=== PATIENT | female | born 1990 | race Caucasian/White ===

== ENCOUNTER 2020-05-07 09:36 | Emergency (ER) | payer OTHER, SELFPAY ==
[2020-05-07 09:53] VITALS: BP 99/68; PULSE 83; RESP 18; TEMP 36.9; O2SAT 100
--- NOTE | 2020-05-07 09:53 | ED.GENADULT ---
HPI - General Adult General Chief complaint: Ear Stated complaint: Ear Time Seen by Provider: 05/07/20 10:11 Source: patient Mode of arrival: ambulatory Limitations: no limitations History of Present Illness HPI narrative: 29-year-old female patient resents to the [facility] with complaints of clogged ear to right. Patient states she had an itchy ear on the right side yesterday and used a Q-tip and states that she thinks she might have pushed the wax down into the ear and now is feeling clogged. Denies any pain. Denies any fevers, runny nose or coughing. Related Data Home Medications Medication Instructions Recorded Confirmed No Home Medications 05/07/20 05/07/20 Allergies Allergy/AdvReac Type Severity Reaction Status Date / Time cephalexin Allergy Unknown hallucinations, Verified 05/07/20 10:00 tachycardia tramadol Allergy Unknown HALLUCINATIONS, Verified 05/07/20 10:00 CHEST TIGHTNESS Review of Systems Review of Systems: Narrative: CONSTITUTIONAL: Denies fever, chills, or sweats. EYES: Denies visual changes, redness, or discharge. ENT: Denies rhinorrhea, congestion, sore throat, or otalgia. Positive clogged right ear. CARDIOVASCULAR: Denies chest pain, palpitations, or edema. RESPIRATORY: Denies cough or dyspnea. GASTROINTESTINAL: Denies abdominal pain, nausea, vomiting, or diarrhea. GENITOURINARY: Denies dysuria or hematuria. SKIN: Denies rash or itching. MUSCULOSKELETAL: Denies back pain, joint pain, or myalgia. NEUROLOGIC: Denies headache, numbness, or weakness. PSYCHIATRIC: Denies anxiety or depression. [facility] Past Medical History Medical History Anemia Marijuana use Surgical History Surgical History (Updated 05/07/20 @ 09:55 by TEENA Lake) H/O tubal ligation Comments At the time of my signature I agree with nursing past medical history, surgical, social, and family history. There is no relevant family history pertinent to the presenting complaint. Exam Narrative: Exam Narrative: GENERAL: Well-appearing, well-nourished, and in no acute distress. HEAD: Normocephalic, atraumatic. EYES: PERRLA and EOMI. ENT: Nares clear, no rhinorrhea or epistaxis. Mucous membranes moist. Right TM unable to be visualized due to impacted cerumen noted to the canal. NECK: Supple. No lymphadenopathy CHEST: Clear to auscultation. No respiratory distress. HEART: Regular rate and rhythm. No murmur heard. Normal peripheral pulses. ABDOMEN: Soft, nontender, nondistended, normal active bowel sounds. EXTREMITIES: Normal range of motion. No edema. SKIN: Warm, dry, no rash. NEURO: No focal deficits. Alert and oriented x3. Course Vital Signs Vital signs: Vital Signs Temperature 36.9 C 05/07/20 09:53 Pulse Rate 83 05/07/20 09:53 Respiratory Rate 18 05/07/20 09:53 Blood Pressure 99/68 L 05/07/20 09:53 Pulse Oximetry 100 05/07/20 09:53 Temperature 36.9 C 05/07/20 09:53 Pulse Rate 83 05/07/20 09:53 Respiratory Rate 18 05/07/20 09:53 Blood Pressure 99/68 L 05/07/20 09:53 Pulse Oximetry 100 05/07/20 09:53 Vital signs reviewed. Procedures Ear Wax Removal Right Ear: Ear Wax Removal Date: 05/07/20 Ear Wax Removal Time: 10:15 Cerumenolytic Used: 5-10% Sodium Bicarb solution Results: Re-examined: cerumen removed completely TM Examination: TM(s) intact, normal appearance Ear Canal Exam: atraumatic Patient Tolerated Procedure: well Complications: no problems Technique: ear canal irrigated and ear canal curetted Additional Comments: The patient had cerumen removed from the R ear canal with warm water and peroxide irrigation and a loop in order to visualize the TM. The TM has no perforations or erythema post procedure. There were no complications. Medical Decision Making Differential Diagnosis Differential Diagnosis: Differential diagnosis: Otitis media, otitis externa, perforated TM, infection of the
== END 2020-05-07 10:24 | disposition home or self-care (01) ==
PROVIDERS: Emergency Provider Nurse Practitioner Family
DX: H61.21 Impacted cerumen, right ear (principal)
CPT/HCPCS: 69210; 99212; G0463

== ENCOUNTER 2021-05-06 14:30 | Emergency (ER) | payer OTHER, SELFPAY ==
[2021-05-06 14:40] VITALS: BP 117/83; PULSE 75; RESP 16; TEMP 36.9; O2SAT 100
--- NOTE | 2021-05-06 16:43 | ED.EAR ---
HPI - Ear Problem General Stated complaint: Ear pain Time Seen by Provider: 05/06/21 14:30 Source: patient and RN notes reviewed Mode of arrival: ambulatory Limitations: no limitations History of Present Illness HPI Narrative: 30-year-old female presents with concern for bilateral ear itching, purulent drainage, foul-smelling drainage, feeling of fluid in her ears. She denies rhinorrhea, nasal congestion, decreased hearing, sore throat, headache, fever. Denies intervention. Complaint: ear pain Related Data Allergies Allergy/AdvReac Type Severity Reaction Status Date / Time No Known Allergies Allergy Verified 05/06/21 16:46 Review of Systems Review of Systems: CONSTITUTIONAL: Denies malaise, chills, sweats, or fever. EYES: Denies visual changes, redness, or discharge. ENT: Denies rhinorrhea, congestion, sinus pain, otalgia or sore throat. Reports bilateral itchy ears, purulent drainage, feeling of fluid in her ears CARDIOVASCULAR: Denies chest pain, palpitations, or edema. SKIN: Denies rash or itching. MUSCULOSKELETAL: Denies myalgia. NEUROLOGIC: Denies headache. All systems reviewed & are unremarkable except as noted in HPI and below PMFSH Comments At time of signature, agree with nursing past medical, surgical, social and family history. There is no relevant family history pertinent to the presenting complaint Exam Narrative: GENERAL: Well-appearing, well-nourished, and in no acute distress. HEAD: Normocephalic EYES: PERRLA, conjunctivae clear ENT: Nares clear. Mucous membranes moist. TM pearly ward with dull light reflex bilaterally; no tragal tenderness bilateral purulent discharge in auditory canals without erythema or edema. Oropharynx not erythematous without lesions. Tonsils not enlarged and without exudate, no drooling, no hoarseness, no trismus, uvula midline. NECK: Supple. No lymphadenopathy CHEST: No respiratory distress, speaks in full sentences. HEART: Regular rate and rhythm. SKIN: Warm, dry, no rash. NEURO: Alert and oriented x3. PSYCH: Normal mood and affect Course Course Emergency Course: Patient is aware of diagnosis, understands and agrees to treatment plan. Anticipatory guidance given. Patient agrees to follow-up as directed and is aware of reasons to seek care at the emergency department. Portions of this record may have been created with voice recognition software Vital Signs Vital signs: Vital Signs Temperature 98.4 F 05/06/21 14:40 Pulse Rate 75 05/06/21 14:40 Respiratory Rate 16 05/06/21 14:40 Blood Pressure 117/83 05/06/21 14:40 Pulse Oximetry 100 05/06/21 14:40 Temperature 98.4 F 05/06/21 14:40 Pulse Rate 75 05/06/21 14:40 Respiratory Rate 16 05/06/21 14:40 Blood Pressure 117/83 05/06/21 14:40 Pulse Oximetry 100 05/06/21 14:40 Reviewed. Medical Decision Making MDM Narrative Medical decision making narrative: Differential diagnosis considered: Rider virus, strep pharyngitis, allergic rhinitis, upper respiratory tract infection, sinusitis, rhinosinusitis, nasopharyngitis. viral pharyngitis, otitis media, otitis externa, cerumen impaction, eustachian tube dysfunction, foreign body. Exam findings show no acute concerns or changes; patient is non-toxic appearing and is in no distress. Patient is appropriate for outpatient treatment and follow-up. Vital Signs Vital Signs: Vital Signs Temperature 98.4 F 05/06/21 14:40 Pulse Rate 75 05/06/21 14:40 Respiratory Rate 16 05/06/21 14:40 Blood Pressure 117/83 05/06/21 14:40 Pulse Oximetry 100 05/06/21 14:40 Temperature 98.4 F 05/06/21 14:40 Pulse Rate 75 05/06/21 14:40 Respiratory Rate 16 05/06/21 14:40 Blood Pressure 117/83 05/06/21 14:40 Pulse Oximetry 100 05/06/21 14:40 Critical Care Time Critical Care Time Critical Care Time: No Discharge Plan Discharge Clinical Impression: Otitis externa Qualifiers: Otitis externa type: unspecified type Chronicity
== END 2021-05-06 16:20 | disposition home or self-care (01) ==
PROVIDERS: Emergency Provider Nurse Practitioner
DX: H60.503 Unspecified acute noninfective otitis externa, bilateral (principal)
CPT/HCPCS: 99213; G0463

== ENCOUNTER 2021-05-31 11:23 | Emergency (ER) | payer OTHER, SELFPAY ==
--- NOTE | ~2021-05-31 | XR_ITS ---
XR chest 2V DATE: 05/31/2021 11:56 INDICATION: Chest pain, right side, radiating to shoulder blade TECHNIQUE: PA and lateral views COMPARISON: None FINDINGS: Normal heart size. No hilar or mediastinal enlargement. No pulmonary infiltrate or consolid ation, pleural effusion or pulmonary vascular congestion or pneumothorax. Included skeletal structure s appear normal. IMPRESSION: Negative Reviewed, dictated and finalized at location A. IMPRESSION: Negative
[2021-05-31 11:30] VITALS: BP 108/80; PULSE 99; RESP 16; TEMP 36.6; O2SAT 98
--- NOTE | 2021-05-31 11:30 | ECG_ITS ---
Measurements Intervals [place] Rate: 95 P: 51 LA: 134 QRS: 39 QRSD: 85 T: 17 QT: 351 QTc: 442 Interpretive Statements SINUS RHYTHM NORMAL ECG Electronically Signed On 05-31-2021 18:10:44 CDT by Nash Delgado D.O.
[2021-05-31] MEDS: ASPIRIN 81 MG CHEWABLE TABLET 324 MG PO (11:39)
[2021-05-31 11:44] LABS: Basophils Percent Auto 0.5 % (0.2-1.2); Eosinophils Absolute Auto 0.1 K/mm3 (0-0.3); Eosinophils Percent Auto 2.1 % (0-4.4); Hematocrit 41.7 % (37.0-47.0); Immature Granulocyte Absolute 0.02 K/mm3 (0.00-0.031); Immature Granulocyte Percent A 0.3 % (0-0.5); Lymphocytes Absolute Auto 1.61 K/mm3 (0.9-3.2); Lymphocytes Percent Auto 24.6 % (18.3-44.2); Mean Corpuscular HGB Conc 33.6 g/dl (32-36); Mean Corpuscular Hemoglobin 30.3 pg (26-34); Mean Corpuscular Volume 90.3 fl (80-100); Mean Platelet Volume 9.6 fl (7.4-10.4); Monocytes Absolute Auto 0.6 K/mm3 (0.1-0.6); Monocytes Percent Auto 8.4 % (2.6-8.5); Neutrophils Absolute Auto 4.2 K/mm3 (1.3-6.7); Neutrophils Percent Auto 64.1 % (45.5-73.1); Platelet Count Result 272 k/mm3 (150-375); Red Blood Count 4.62 M/mm3 (4.2-5.4); Red Cell Distribution Width 13.1 % (11.5-14.5); White Blood Count 6.5 K/mm3 (4.5-10.0)
[2021-05-31 11:53] LABS: Anion Gap 8 mmol/L (8-16); Blood Urea Nitrogen 13 mg/dL (7-17); Calcium 8.9 mg/dL (8.4-10.2); Carbon Dioxide 24 mmol/L (22-30); Chloride 107 mmol/L (98-107); Estimated Glomerular Filt Rate > 60; Glucose 99 mg/dL (65-110); Potassium 3.7 mmol/L (3.4-5.0); Sodium 139 mmol/L (137-145)
[2021-05-31 12:05] LABS: Troponin I < 0.012 ng/mL (0.000-0.034)
[2021-05-31 12:47] LABS: Alanine Aminotransferase 15 U/L (4-35); Albumin Level 4.5 g/dL (3.5-5.1); Alkaline Phosphatase 54 U/L (38-126); Aspartate Amino Transferase 27 U/L (14-36); Bilirubin,Total 0.5 mg/dL (0.2-1.3); Lipase 66 U/L (23-300)
[2021-05-31] MEDS: KETOROLAC 30 MG/ML VIAL (*BKC) IV PUSH (12:48)
--- NOTE | 2021-05-31 13:49 | ED.CHESTPAIN ---
HPI - Chest Pain General Chief Complaint: Chest Pain Stated Complaint: right sided chest pain Time Seen by Provider: 05/31/21 12:01 Source: patient Mode of arrival: ambulatory Limitations: no limitations History of Present Illness HPI narrative: 30-year-old female In good health Complains of a 2-day history of pain in the right upper chest Sometimes radiates to her upper back on the same side No other associated symptoms, specifically she does not have a cough fever or shortness of breath, she does not have nausea or vomiting, there is no history of injury Pain is increased by some movements and positions, there is some mild tenderness with palpation, and incidentally or not it for started after smoking marijuana which she does most days Related Data Allergies Allergy/AdvReac Type Severity Reaction Status Date / Time cephalexin Allergy Unknown hallucinations, Verified 05/07/20 10:00 tachycardia tramadol Allergy Unknown HALLUCINATIONS, Verified 05/07/20 10:00 CHEST TIGHTNESS Review of Systems Review of Systems: All systems reviewed & are unremarkable except as noted in HPI and below Constitutional: Constitutional: Reports no additional constitutional complaints, Denies chills, Denies fever(s) and Denies headache(s) Eyes: Eyes: Reports no additional eye complaints and Denies change in vision ENT: Denies headache(s) and Denies sore throat Cardiovascular: Cardiovascular: Reports chest pain, Denies radiating jaw, neck or arm pain and Denies dyspnea Respiratory: Respiratory: Denies cough and Denies dyspnea Gastrointestinal: Gastrointestinal: Denies abdominal pain, Denies diarrhea, Denies nausea and Denies vomiting Genitourinary: Genitourinary: Denies urinary frequency and Denies dysuria Musculoskeletal: Musculoskeletal: Denies deformity, Denies arthralgias, Denies joint swelling and Denies numbness Integumentary/Breasts: Skin/Breast: Denies rash and Denies wounds Neurologic: Denies headache(s), Denies focal weakness and Denies numbness Psychiatric: Psychiatric: Reports no additional psychiatric complaints Endocrine: Endocrine: Reports no additional endocrine complaints Hematologic/Lymphatic: Hematologic/Lymphatic: Reports no additional hematologic/lymphatic complaints Allergic/Immunologic: Allergic/Immunologic: Reports no additional allergic/immunologic complaints PMFSH Past Medical History Medical History Anemia Marijuana use Surgical History Surgical History H/O tubal ligation Exam Const: General: cooperative, healthy appearing, no acute distress and alert Orientation/consciousness: patient oriented x3 (alert) HENMT: Head: normal to inspection, normocephalic and atraumatic Ears: external ears normal General nose exam: no epistaxis Eyes: Conjunctivae: conjunctivae normal EOM: EOMs intact bilaterally Neck: Neck: normal visual inspection, supple and no JVD Chest: Chest palpation & inspection: tenderness Other: Mild tenderness of the medial right upper chest Resp: Effort & Inspection: normal respiratory effort and not labored Auscultation: clear to auscultation bilaterally, no rales, no rhonchi, no wheezes and other (BS =) Cardio: Rate: regular rate Rhythm: regular rhythm Heart sounds: no murmurs GI: GI Palp: Yes Soft to palpation, No Tenderness to palpation present (GI), No Guarding due to palpation present (GI) and No Rebound tenderness present Back/Spine/Pelvis: Back: no CVA tenderness Skin: General skin exam: normal color and no rashes or lesions noted Neuro: General: patient oriented x3 (alert) and moves all extremities Speech: normal speech Extrem: General: normal to inspection and no pedal edema Psych: Affect: normal affect Course Course Emergency Course: Work-up unremarkable Normal LFTs and right upper quadrant is nontender She perks out Vital Signs Vital signs: Vital Signs Temperature
[2021-05-31 14:05] VITALS: PULSE 80; RESP 16; O2SAT 98
== END 2021-05-31 14:06 | disposition home or self-care (01) ==
PROVIDERS: Emergency Provider Emergency Medicine
DX: R07.89 Other chest pain (principal); Z86.2 Personal history of diseases of the blood and blood-forming organs and certain disorders involving the immune mechanism
CPT/HCPCS: 36415; 71046; 80048; 80076; 83690; 84484; 85025; 93005; 96374; 99284; A9270; J1885

== ENCOUNTER 2021-06-25 10:39 | Emergency (ER) | payer OTHER, SELFPAY ==
--- NOTE | ~2021-06-25 | XR_ITS ---
EXAMINATION: XR finger 2nd LT min 2V DATE: 06/25/2021 10:57 INDICATION: Laceration to the tip of the left second digit while cutting bread. TECHNIQUE: Dorsal palmar, lateral and 2 oblique views of the left second digit were obtained COMPARISON: None FINDINGS: Bone alignment is normal. No fracture. Joint spaces are normal. Linear lucency likely representing th e laceration projecting over the soft tissues at the palmar tip of the second digit. No radiopaque fo reign bodies. IMPRESSION: 1. No osseous abnormality or radiopaque foreign body. Reviewed, dictated and finalized at location A.
[2021-06-25 10:40] VITALS: BP 131/82; PULSE 74; RESP 14; TEMP 36.1; O2SAT 94
--- NOTE | 2021-06-25 11:01 | PC.NURSE ---
wound cleaned with wound cleanser and loose gauze dressing applied.
--- NOTE | 2021-06-25 11:25 | ED_ITS ---
HPI - Wound/Laceration General Chief Complaint: Wound/Laceration Stated Complaint: finger lac Time Seen by Provider: 06/25/21 10:58 History of Present Illness HPI narrative: Patient is a 31-year-old female who presents ER with a laceration to her left second digit. Its over the tip. No involvement of the nail. No numbness or tingling. Reports uncontrolled bleeding so she came to the ER. Tetanus up-to-date. No limitation range of motion. Related Data Allergies Allergy/AdvReac Type Severity Reaction Status Date / Time cephalexin Allergy Unknown hallucinations, Verified 06/25/21 10:48 tachycardia tramadol Allergy Unknown HALLUCINATIONS, Verified 06/25/21 10:48 CHEST TIGHTNESS Review of Systems Musculoskeletal: Musculoskeletal: Denies arthralgias and Denies joint swelling Integumentary/Breasts: Skin/Breast: Denies erythema and Denies rash Comments: Once a meter C-shaped laceration distal tip of second digit left side. Neurologic: Denies focal weakness and Denies numbness PMFSH Past Medical History Medical History Anemia Marijuana use Surgical History Surgical History H/O tubal ligation Social History Social History (Updated 06/25/21 @ 11:28 by Joel Kahn MD) Smoking status: Never smoker Substance use type: marijuana Exam Narrative: GENERAL: Well-appearing, well-nourished, and in no acute distress. HEAD: Normocephalic, atraumatic. EXTREMITIES: Normal range of motion. No edema. SKIN: Warm, dry, no rash. 1 cm C-shaped laceration is superficial to the distal tip of the left second digit. NEURO: No focal deficits. Alert and oriented x3. PSYCH: Normal mood and affect. Course Course Emergency Course: No repair required. Topical antibiotic and Band-Aids applied. Nurse applied a small AlumaFoam splint for protection during healing process. Ibuprofen given for pain. Vital Signs Vital signs: Vital Signs Temperature 96.9 F L 06/25/21 10:40 Pulse Rate 74 06/25/21 10:40 Respiratory Rate 14 06/25/21 10:40 Blood Pressure 131/82 06/25/21 10:40 Pulse Oximetry 94 06/25/21 10:40 Temperature 96.9 F L 06/25/21 10:40 Pulse Rate 74 06/25/21 10:40 Respiratory Rate 14 06/25/21 10:40 Blood Pressure 131/82 06/25/21 10:40 Pulse Oximetry 94 06/25/21 10:40 MDM - Wound/Laceration Imaging Data Radiologist's impression: ITS Impressions Finger X-Ray 06/25/21 11:02 IMPRESSION: 1. No osseous abnormality or radiopaque foreign body. Discharge Plan Discharge Clinical Impression: Laceration Patient Disposition: Home, Self-Care Condition: Stable Instructions: Laceration (ED) Additional Instructions: Wear your AlumaFoam splint until you feel like you do not have tenderness over the tip your finger. Return the ER if you have red/hot finger, your wound is draining pus, you have additional concerns. Prescriptions: No Action naproxen [Naprosyn] 500 mg tablet 500 mg PO BID Qty: 20 RF: 0 Follow-up/Referrals: PHYSICIAN,PROGRAM DIRECTOR AIR TALENT [Primary Care Provider] - Brady Singh MD [Physician] - 1 Week
[2021-06-25] MEDS: IBUPROFEN 600 MG TABLET PO (11:27)
--- NOTE | 2021-08-06 08:01 | PC.NURSE ---
LATE ENTRY This note is being entered to document information to the patient's record. The following information was omitted on [06/25/2021], by [Fanta Arriaga RN]. Location of injury verified to left hand, not right.
== END 2021-06-25 11:36 | disposition home or self-care (01) ==
PROVIDERS: Emergency Provider Emergency Medicine
DX: S61.211A Laceration without foreign body of left index finger without damage to nail, initial encounter (principal); Z86.2 Personal history of diseases of the blood and blood-forming organs and certain disorders involving the immune mechanism; W26.9XXA Contact with unspecified sharp object(s), initial encounter; Y93.G1 Activity, food preparation and clean up
CPT/HCPCS: 29130; 73140; 99283; A9270

== ENCOUNTER 2022-01-09 09:01 | Emergency (ER) | payer OTHER, SELFPAY ==
--- NOTE | ~2022-01-09 | XR_ITS ---
EXAMINATION: XR ribs LT 2V w CXR 2V DATE: 01/09/2022 09:33 INDICATION: Left posterior rib pain TECHNIQUE: PA and lateral views of the chest and 3 views of the left ribs were obtained. COMPARISON: Chest radiograph dated 05/31/2021 FINDINGS: Bones are unremarkable with no rib fractures identified. Lungs remain clear with no focal airspace op acities, pulmonary edema, pleural effusion or pneumothorax. IMPRESSION: 1. Normal chest and left rib radiographs. Reviewed, dictated and finalized at location A.
--- NOTE | 2022-01-09 09:08 | ECG_ITS ---
Measurements Intervals [place] Rate: 85 P: 55 GA: 128 QRS: 63 QRSD: 87 T: 36 QT: 370 QTc: 441 Interpretive Statements SINUS RHYTHM VENTRICULAR PREMATURE COMPLEX MINIMAL Q WAVES- INF/LAT LEADS BASELINE ARTIFACT- V4-V6 BORDERLINE ECG Electronically Signed On 01-09-2022 11:27:43 CDT by Nash Delgado D.O.
[2022-01-09 09:09] VITALS: BP 102/70; PULSE 77; RESP 17; TEMP 36.6; O2SAT 98
--- NOTE | 2022-01-09 09:22 | ED.BACK ---
HPI - Back Pain/Injury General Chief Complaint: Back Pain/Injury Stated Complaint: Left Shoulder Blade Pain Time Seen by Provider: 01/09/22 09:07 Related Data Allergies Allergy/AdvReac Type Severity Reaction Status Date / Time cephalexin Allergy Unknown hallucinations, Verified 01/09/22 09:14 tachycardia tramadol Allergy Unknown HALLUCINATIONS, Verified 01/09/22 09:14 CHEST TIGHTNESS PMFSH Past Medical History Medical History Anemia Marijuana use Surgical History Surgical History H/O tubal ligation Social History Social History (System 12/03/21 @ 14:46 by Daija Ross) Smoking status: Never smoker Substance use type: marijuana Course Vital Signs Vital signs: Vital Signs Temperature 97.9 F 01/09/22 09:09 Pulse Rate 77 01/09/22 09:09 Respiratory Rate 17 01/09/22 09:09 Blood Pressure 102/70 01/09/22 09:09 Pulse Oximetry 98 01/09/22 09:09 Oxygen Delivery Room Air 01/09/22 09:09 Temperature 97.9 F 01/09/22 10:22 Pulse Rate 77 01/09/22 09:09 Respiratory Rate 17 01/09/22 09:09 Blood Pressure 102/70 01/09/22 09:09 Pulse Oximetry 98 01/09/22 09:09 Oxygen Delivery Room Air 01/09/22 09:09 Discharge Plan Discharge Clinical Impression: Back pain Patient Disposition: Home, Self-Care Condition: Stable Instructions: Back Pain (ED), Thoracic Back Strain (ED) Additional Instructions: Return to the ER if you experience fever, rash, chest pain, shortness of breath, weakness, numbness, or any other symptoms that are concerning to you Rest, use ice/heat, take anti-inflammatories (Aleve, Ibuprofen, Naproxen, etc) or Tylenol as needed for pain as well as muscle relaxer (Flexeril) as needed for pain. Muscle relaxers can make you drowsy, do not drive if you take this Follow up with primary care doctor Prescriptions: New cyclobenzaprine 10 mg tablet 10 mg PO TID PRN (Reason: muscle spasm) Qty: 14 0RF Follow-up/Referrals: PHYSICIAN,SUPPLY REQUIREMENTS OFFICER [Primary Care Provider] - Brady Singh MD [Physician] - 1 Week Stand Alone Forms: Work/School Release IP
[2022-01-09] MEDS: KETOROLAC (*BKC) 60 MG/2 ML VIAL IM (09:52)
[2022-01-09 10:22] VITALS: TEMP 36.6
== END 2022-01-09 11:12 | disposition home or self-care (01) ==
PROVIDERS: Emergency Provider Emergency Medicine
DX: M54.6 Pain in thoracic spine (principal); Z86.2 Personal history of diseases of the blood and blood-forming organs and certain disorders involving the immune mechanism; I49.3 Ventricular premature depolarization
CPT/HCPCS: 71046; 71100; 93005; 96372; 99283; J1885

== ENCOUNTER 2022-05-09 11:35 | Emergency (ER) | payer OTHER, SELFPAY ==
[2022-05-09 11:40] VITALS: BP 104/67; PULSE 77; RESP 16; TEMP 36.6; O2SAT 100
--- NOTE | 2022-05-09 12:09 | ED.EAR ---
HPI - Ear Problem General Chief complaint: Ear Stated complaint: Ear pain Time Seen by Provider: 05/09/22 11:55 Source: patient, RN notes reviewed and old records reviewed Mode of arrival: ambulatory Limitations: no limitations History of Present Illness HPI Narrative: 31 year old female presents to e week ago with no [facility] care with complaints of having some clear/ orangy drainage from her right ear with some discomfort and left ear feeling clogged with some some decreased hearing for 1-2 weeks with increased symptoms last night. Patient reports that she did try some Debrox to her ears once last week with no improvement.Patient voices history of excessive ear wax. MD Complaint: decreased hearing Location: bilateral Treatment prior to arrival: other (DEBROX) Related Data Allergies Allergy/AdvReac Type Severity Reaction Status Date / Time cephalexin Allergy Unknown hallucinations, Verified 01/09/22 09:14 tachycardia tramadol Allergy Unknown HALLUCINATIONS, Verified 01/09/22 09:14 CHEST TIGHTNESS Review of Systems Review of Systems: CONSTITUTIONAL: Denies fever, chills, or sweats. EYES: Denies visual changes, redness, or discharge. ENT: Denies rhinorrhea, congestion, sore throat, positive otalgia bilaterally CARDIOVASCULAR: Denies chest pain, palpitations, or edema. RESPIRATORY: Denies cough or dyspnea. GASTROINTESTINAL: Denies abdominal pain, nausea, vomiting, or diarrhea. GENITOURINARY: Denies dysuria or hematuria. SKIN: Denies rash or itching. MUSCULOSKELETAL: Denies back pain, joint pain, or myalgia. NEUROLOGIC: Denies headache, numbness, or weakness. PSYCHIATRIC: Denies anxiety or depression. All systems reviewed & are unremarkable except as noted in HPI and below PMFSH Past Medical History Medical History Anemia Marijuana use Surgical History Surgical History H/O tubal ligation Social History Social History Smoking status: Never smoker Substance use type: marijuana Comments At time of signature, agree with nursing past medical, surgical, social and family history. There is no relevant family history pertinent to the presenting complaint Exam Narrative: GENERAL: Well-appearing, well-nourished, and in no acute distress. HEAD: Normocephalic, atraumatic. EYES: PERRLA and EOMI. ENT: Nares clear, no rhinorrhea or epistaxis. Mucous membranes moist.Right TM normal with good light reflex ear canal red and excoriated noted after irrigation, Left TM with impacted ear wax, once irrigated TM noted to be normal no ear canal redness or swelling noted, throat pink with no lesions or swelling., NECK: Supple.no lymphadenopathy CHEST: Clear to auscultation. No respiratory distress.SAO2 100% on room air HEART: Regular rate and rhythm. No murmur heard. Normal peripheral pulses. ABDOMEN: Soft, nontender, nondistended, normal active bowel sounds. EXTREMITIES: Normal range of motion. No edema. SKIN: Warm, dry, no rash. NEURO: No focal deficits. Alert and oriented x3. Course Course Level of Care: Express Care Visit Vital Signs Vital signs: Vital Signs Temperature 36.6 C 05/09/22 11:40 Pulse Rate 77 05/09/22 11:40 Respiratory Rate 16 05/09/22 11:40 Blood Pressure 104/67 05/09/22 11:40 Pulse Oximetry 100 05/09/22 11:40 Oxygen Delivery Room Air 05/09/22 11:40 Temperature 36.6 C 05/09/22 11:40 Pulse Rate 77 05/09/22 11:40 Respiratory Rate 16 05/09/22 11:40 Blood Pressure 104/67 05/09/22 11:40 Pulse Oximetry 100 05/09/22 11:40 Oxygen Delivery Room Air 05/09/22 11:40 Procedures Ear Wax Removal Both Ears: Ear Wax Removal Date: 05/09/22 Ear Wax Removal Time: 12:18 Cerumenolytic Used: 5-10% Sodium Bicarb solution Results: Re-examined: cerumen removed completely TM Examination: TM(s) intact, normal appearance
== END 2022-05-09 12:50 | disposition home or self-care (01) ==
PROVIDERS: Emergency Provider Registered Nurse
DX: H61.23 Impacted cerumen, bilateral (principal); H66.91 Otitis media, unspecified, right ear; F12.90 Cannabis use, unspecified, uncomplicated
CPT/HCPCS: 69209; 99213; G0463

== ENCOUNTER 2022-06-26 11:45 | Emergency (ER) | payer OTHER, SELFPAY ==
[2022-06-26 11:57] VITALS: BP 109/81; PULSE 98; RESP 16; TEMP 36.7; O2SAT 99
--- NOTE | 2022-06-26 12:31 | ED.URI ---
HPI - URI/Sore Throat General Chief Complaint: Upper Respiratory Infection <DWAYNE Blake Last Filed: 06/26/22 13:26> Stated Complaint: FEVER,[place] [employer] STOOLS DAUGHTER HAS FLU A <DWAYNE Blake Last Filed: 06/26/22 13:26> Time Seen by Provider: 06/26/22 12:02 <DWAYNE Blake Last Filed: 06/26/22 13:26> Source: patient <DWAYNE Blake Last Filed: 06/26/22 13:26> Mode of arrival: ambulatory <DWAYNE Blake Filed: 06/26/22 13:26> Limitations: no limitations <DWAYNE Blake Last Filed: 06/26/22 13:26> History of Present Illness HPI Narrative: Patient is a 32-year-old female who presents the ED with report of flulike symptoms. Patient reports she began to feel unwell Wednes night with fevers, chills, nausea, vomiting, diarrhea, cough, sore throat, myalgias. Her daughter recently tested positive for Influenza A. Patient did not receive flu vaccine this year. Has not taken anything for her symptoms today. Denies abdominal pain, chest pain, SOB, rectal bleeding. <DWAYNE Blake Last Filed: 06/26/22 13:26> Related Data Allergies/Adverse Reactions: Allergies Allergy/AdvReac Type Severity Reaction Status Date / Time cephalexin Allergy Unknown hallucinations, Verified 06/26/22 12:13 tachycardia tramadol Allergy Unknown HALLUCINATIONS, Verified 06/26/22 12:13 CHEST TIGHTNESS <DWAYNE Blake Last Filed: 06/26/22 13:26> Review of Systems Review of Systems: CONSTITUTIONAL: Reports fever, chills. ENT: Reports sore throat. CARDIOVASCULAR: Denies chest pain. RESPIRATORY: Reports cough. Denies dyspnea. GASTROINTESTINAL: Reports N/V/D. Denies abdominal pain, rectal bleeding. MUSCULOSKELETAL: Reports back pain, myalgias. <DWAYNE Blake Last Filed: 06/26/22 13:26> All systems reviewed & are unremarkable except as noted in HPI and below <Gabrielle Gordon PA-C - Last Filed: 06/26/22 13:26> PMFSH Past Medical History Medical History: Medical History Anemia Marijuana use <Gabrielle Gordon PA-C - Last Filed: 06/26/22 13:26> Surgical History Surgical History: Surgical History H/O tubal ligation <Gabrielle Gordon PA-C - Last Filed: 06/26/22 13:26> Social History Social History: Social History Smoking status: Never smoker Substance use type: marijuana <Gabrielle Gordon PA-C - Last Filed: 06/26/22 13:26> Exam Narrative: GENERAL: Mildly ill appearing, well-nourished, non-toxic, in no acute distress. HEAD: Normocephalic, atraumatic. EYES: PERRL/EOMI, conjunctivae clear bilaterally. NOSE: Normal, no drainage. THROAT: Pharynx clear, minimal posterior erythema, no tonsillar hypertrophy or exudate. MMs moist. Uvula midline. NECK: Supple. No adenopathy, no masses. RESPIRATORY: Airway patent, respirations nonlabored. Clear to auscultation bilaterally, no rales, rhonchi, wheezing. CARDIOVASCULAR: Regular rate and rhythm without murmurs, rubs, or gallops. Peripheral pulses 2+ and equal bilaterally. ABDOMINAL: Soft, nontender, nondistended, no hepatosplenomegaly. Normoactive BS. MUSCULOSKELETAL: Moves all extremities. Strength/ROM intact without gross deformities. SKIN: Warm, dry, normal color. No rashes. NEURO: A&O X3. Speech clear. Cranial nerves II-XII grossly intact. Steady gait. No ataxic movements. PSYCHIATRIC: Appropriate mood and affect. Normal interaction. 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 Heart regular rate and rhythm without murmur, lungs clear to auscultation bila
[2022-06-26] MEDS: SODIUM CHLORIDE 0.9% IV 1,000 ML 999 ML IV CONT (12:34)
[2022-06-26 12:36] LABS: Appearance Urine Clear (Clear); Bilirubin Urine 1+ (Negative); Blood Urine Trace-intact (Negative); Color Urine Yellow (Yellow); Glucose Urine UA Negative (Negative); Ketones Urine 4+ mg/dL (Negative); Leukocyte Esterase Ur Negative LEU/UL (Negative); Nitrate Urine Negative (Negative); Protein Urine 1+ mg/dL (Negative); Specific Grav Ur 1.025 (1.001-1.035)
[2022-06-26 12:48] LABS: Influenza A QL RT-PCR Positive (Negative); Influenza B QL RT-PCR Negative (Negative); SARS-CoV-2 RNA PCR Negative
[2022-06-26 12:53] LABS: Bacteria Urine Trace /hpf; Mucus Urine Few /lpf; Squamous Epithelial Cell Urine Moderate /hpf (Few); WBC Urine 0-3 /hpf
[2022-06-26 12:55] LABS: Add Urine Microscopic? YES
== END 2022-06-26 13:43 | disposition home or self-care (01) ==
PROVIDERS: Physician Assistant; Emergency Provider Emergency Medicine
DX: J10.1 Influenza due to other identified influenza virus with other respiratory manifestations (principal); Z20.822 Contact with and (suspected) exposure to COVID-19; Z86.2 Personal history of diseases of the blood and blood-forming organs and certain disorders involving the immune mechanism
CPT/HCPCS: 81001; 87636; 96360; 99283; J7030

== ENCOUNTER 2022-07-02 12:34 | Emergency (ER) | payer OTHER, SELFPAY ==
--- NOTE | ~2022-07-02 | XR_ITS ---
EXAMINATION: XR abdomen/kub 1V INDICATION: Nausea and vomiting TECHNIQUE: Supine views of the abdomen were obtained on 2 radiographs. COMPARISON: None FINDINGS: The bowel gas pattern is normal. There are no dilated loops of bowel. There is a moderate v olume of colonic stool. The visualized osseous structures are unremarkable. The lung bases are clear. IMPRESSION: 1. No radiographic correlate for the patient's symptoms. Reviewed, dictated and finalized at location B. [facility] [employer]
--- NOTE | ~2022-07-02 | XR_ITS ---
EXAMINATION: XR chest 2V DATE: 07/02/2022 13:18 INDICATION: Chest congestion TECHNIQUE: Frontal and lateral views of the chest are obtained COMPARISON: 01/09/2022 FINDINGS: There are minimal airspace opacities of the right middle lobe. No pleural effusion or pneum othorax. The cardiomediastinal silhouette is normal. The visualized bones and soft tissues are unrema rkable. IMPRESSION: 1. Minimal airspace opacities of the right middle lobe, consistent with atelectasis versus pneumonia Reviewed, dictated and finalized at location B. SCOP[facility] TECH IMPRESSION: 1. Minimal airspace opacities of the right middle lobe, consistent with atelect asis versus pneumonia
[2022-07-02 12:39] VITALS: BP 122/81; PULSE 107; RESP 20; TEMP 36.5; O2SAT 96
--- NOTE | 2022-07-02 12:58 | ED.NAVMDI ---
HPI - Nausea/Vomiting/Diarrhea General Chief complaint: Nausea/Vomiting/Diarrhea Stated complaint: nausea since Nov 5 Time Seen by Provider: 07/02/22 12:58 Source: patient and RN notes reviewed Mode of arrival: ambulatory Limitations: no limitations History of Present Illness HPI Narrative: 32-year-old female presented for complaints of nausea and vomiting for 1 week. At the onset of symptoms, she was coughing, having diarrhea,and fever as well, she was diagnosed with influenza on 06/26/22. She was given Zofran at the time which is no longer helping. She endorses cough is productive of yellow sputum. She continues to have a fever of 100.3. Taking imodium with LBM 2 days ago. She denies abdominal pain, flank pain, urinary complaints, shortness of breath, wheezing. Related Data Allergies Allergy/AdvReac Type Severity Reaction Status Date / Time cephalexin Allergy Unknown hallucinations, Verified 07/02/22 12:46 tachycardia tramadol Allergy Unknown HALLUCINATIONS, Verified 07/02/22 12:46 CHEST TIGHTNESS Review of Systems Review of Systems: CONSTITUTIONAL: Denies body aches, lethargy ENT: Denies rhinorrhea, congestion CARDIOVASCULAR: Denies chest pain, palpitations, or edema. RESPIRATORY: reports cough denies dyspnea. GASTROINTESTINAL: Endorses nausea, vomiting, diarrhea. Denies abdominal pain,hematochezia, melena, hematemesis GENITOURINARY: Denies dysuria, hematuria, or CVA tenderness. SKIN: Denies rash, itching, or wounds. MUSCULOSKELETAL: Denies back pain, joint pain, or myalgia. NEUROLOGIC: Denies headache, numbness, tingling, or weakness. All systems reviewed & are unremarkable except as noted in HPI and below PMFSH Past Medical History Medical History Anemia Marijuana use Surgical History Surgical History H/O tubal ligation Social History Social History Smoking status: Never smoker Substance use type: marijuana Comments At time of signature, I have reviewed and agree with nursing past medical, surgical, social and family history unless otherwise noted. Please see nursing chart for further information. There is no relevant family history pertinent to the presenting complaint Exam Narrative: GENERAL: ill-appearing, in no acute distress. EYES: EOMI. Conjunctivae normal. ENT: Mucous membranes pink and moist. CHEST: No respiratory distress. Right mid and lower lobe with faint wheezing and crackles HEART: Regular rate and rhythm. No murmur appreciated. Normal peripheral pulses. ABDOMEN: abd soft, nondistended, normal active bowel sounds. nontender abdomen EXTREMITIES: Normal range of motion. No edema. SKIN: Warm, dry, no rash. Capillary refill normal. Normal skin turgor. PSYCH: Normal affect. Course Course Emergency Course: Patient is aware of diagnosis, understands and agrees to treatment plan. Anticipatory guidance given. Patient agrees to follow-up as directed and is aware of reasons to seek care at the emergency department. Portions of this record may have been created with voice recognition software Level of Care: Express Care Visit Vital Signs Vital signs: Vital Signs Temperature 97.7 F 07/02/22 12:39 Pulse Rate 107 H 07/02/22 12:39 Respiratory Rate 20 07/02/22 12:39 Blood Pressure 122/81 07/02/22 12:39 Pulse Oximetry 96 07/02/22 12:39 Oxygen Delivery Room Air 07/02/22 12:39 Temperature 97.7 F 07/02/22 12:39 Pulse Rate 107 H 07/02/22 12:39 Respiratory Rate 20 07/02/22 12:39 Blood Pressure 122/81 07/02/22 12:39 Pulse Oximetry 96 07/02/22 12:39 Oxygen Delivery Room Air 07/02/22 12:39 MDM - Nausea/Vomiting/Diarrhea MDM Narrative Medical decision making narrative: results of chest x-ray reviewed with patient. Will treat for abx based on PE and CC. Change to metoclopramide. Advised supportive measures a
== END 2022-07-02 14:05 | disposition home or self-care (01) ==
PROVIDERS: Emergency Provider Nurse Practitioner Family
DX: R11.2 Nausea with vomiting, unspecified (principal); R05.9 Cough, unspecified
CPT/HCPCS: 71046; 74018; 99213; G0463

== ENCOUNTER 2022-10-26 10:40 | Emergency (ER) | payer OTHER, SELFPAY ==
[2022-10-26 10:45] VITALS: BP 102/73; PULSE 90; RESP 18; TEMP 36.9; O2SAT 100
--- NOTE | 2022-10-26 10:50 | ED.URI ---
HPI - URI/Sore Throat General Chief Complaint: Upper Respiratory Infection Stated Complaint: sore throat Source: patient and RN notes reviewed History of Present Illness HPI Narrative: 32-year-old female presents urgent care with complaints of sore throat since yesterday. Patient denies any other symptoms including fevers, chills, congestion, ear pain, or vomiting. Patient is not taking any medication for her symptoms. Some parts of this dictation were generated by voice recognition software and may contain typographical and/or grammatical inaccuracies. Related Data Home Medications Medication Instructions Recorded Confirmed No Home Medications 10/26/22 10/26/22 Allergies Allergy/AdvReac Type Severity Reaction Status Date / Time cephalexin Allergy Unknown hallucinations, Verified 10/26/22 10:48 tachycardia tramadol Allergy Unknown HALLUCINATIONS, Verified 10/26/22 10:48 CHEST TIGHTNESS Review of Systems Review of Systems: CONSTITUTIONAL: Denies fever, chills, or sweats. EYES: Denies visual changes, redness, or discharge. ENT: sore throat CARDIOVASCULAR: Denies chest pain, palpitations, or edema. RESPIRATORY: Denies cough or dyspnea. GASTROINTESTINAL: Denies abdominal pain, nausea, vomiting, or diarrhea. GENITOURINARY: Denies dysuria or hematuria. SKIN: Denies rash or itching. MUSCULOSKELETAL: Denies back pain, joint pain, or myalgia. NEUROLOGIC: Denies headache, numbness, or weakness. [facility] Past Medical History Medical History Anemia Marijuana use Surgical History Surgical History H/O tubal ligation Social History Social History Smoking status: Never smoker Substance use type: marijuana Comments At the time of my signature, I reviewed and agree with the nursing past medical, surgical, social, and family history. There is no relevant family history pertinent to the patient complaint. Exam Narrative: GENERAL: This is a well-nourished, well-developed patient, in no apparent distress. HEAD: normocephalic, atraumatic. EYES: PERRL. Sclera clear/white. Vision is grossly intact. EARS: External ears normal, auditory canals clear and without drainage, TMs normal without perforation. Hearing grossly intact. NOSE: External nose normal with no obvious nasal discharge, nares without redness, no rhinorrhea. THROAT: Mucous membranes moist, posterior pharynx clear. NECK: Neck supple, non-tender without lymphadenopathy, masses or thyromegaly. CARDIOVASCULAR: Regular rate. RESPIRATORY: No respiratory distress GASTROINTESTINAL: Abdomen soft, non-tender, nondistended. Bowel sounds are active. No hepato-splenomegaly, or palpable masses. No guarding. SKIN: warm, intact with no suspicious lesions or rash, good texture and turgor. NEURO: awake, alert, and oriented to person, place and time. There were no obvious focal neurologic abnormalities. Course Course Level of Care: Express Care Visit Vital Signs Vital signs: Vital Signs Temperature 98.5 F 10/26/22 10:45 Pulse Rate 90 10/26/22 10:45 Respiratory Rate 18 10/26/22 10:45 Blood Pressure 102/73 10/26/22 10:45 Pulse Oximetry 100 10/26/22 10:45 Oxygen Delivery Room Air 10/26/22 10:45 Temperature 98.5 F 10/26/22 10:45 Pulse Rate 90 10/26/22 10:45 Respiratory Rate 18 10/26/22 10:45 Blood Pressure 102/73 10/26/22 10:45 Pulse Oximetry 100 10/26/22 10:45 Oxygen Delivery Room Air 10/26/22 10:45 Reviewed MDM - URI/Sore Throat MDM Narrative Medical decision making narrative: Rapid strep is negative in the office; however we will send to the lab for confirmation; there is a small percentage chance that it can come back positive; if it is, we will call you in 2-3days; and your prescription will be call in to your pharmacy. However, there is NO indication for antibiotic at this time. -Oral rinse
== END 2022-10-26 11:14 | disposition home or self-care (01) ==
PROVIDERS: Emergency Provider Nurse Practitioner Family; PCP Emergency Medicine
DX: J02.9 Acute pharyngitis, unspecified (principal)
CPT/HCPCS: 87081; 87880; 99213; G0463

== ENCOUNTER 2022-11-27 10:13 | Emergency (ER) | payer OTHER, SELFPAY ==
[2022-11-27 10:20] VITALS: BP 108/67; PULSE 101; RESP 16; TEMP 36.4; O2SAT 98
--- NOTE | 2022-11-27 10:34 | ED.URI ---
HPI - URI/Sore Throat General Chief Complaint: Upper Respiratory Infection Stated Complaint: productive cough Time Seen by Provider: 11/27/22 10:34 History of Present Illness HPI Narrative: Patient presents requesting a work note for her cold-like symptoms. Patient has loose congested cough nasal congestion and postnasal drainage. Patient did try some DayQuil for her symptoms and took Benadryl last night. Patient states her symptoms started 2 days ago and she is starting to feel better but needs a note for work since she did miss work today and yesterday. Related Data Allergies Allergy/AdvReac Type Severity Reaction Status Date / Time cephalexin Allergy Unknown hallucinations, Verified 10/26/22 10:48 tachycardia tramadol Allergy Unknown HALLUCINATIONS, Verified 10/26/22 10:48 CHEST TIGHTNESS Review of Systems Review of Systems: CONSTITUTIONAL: Denies chills, or sweats. Reports fever and generalized body aches EYES: Denies visual changes, redness, or discharge. ENT: Denies otalgia. Reports nasal congestion runny nose and sore throat CARDIOVASCULAR: Denies chest pain, palpitations, or edema. RESPIRATORY: Denies dyspnea. Reports occasional cough GASTROINTESTINAL: Denies abdominal pain, nausea, vomiting, or diarrhea. GENITOURINARY: Denies dysuria or hematuria. SKIN: Denies rash or itching. MUSCULOSKELETAL: Denies back pain, joint pain, or myalgia. Reports generalized body aches NEUROLOGIC: Denies headache, numbness, or weakness. PSYCHIATRIC: Denies anxiety or depression. PMFSH Past Medical History Medical History Anemia Marijuana use Surgical History Surgical History H/O tubal ligation Social History Social History Smoking status: Never smoker Substance use type: marijuana Comments At time of signature, agree with nursing past medical, surgical, social and family history. There is no relevant family history pertinent to the presenting complaint Exam Narrative: GENERAL: Well-appearing, well-nourished, and in no acute distress. HEAD: Normocephalic, atraumatic. EYES: PERRLA and EOMI. ENT: Nares clear, no rhinorrhea or epistaxis. Mucous membranes moist. NECK: Supple. CHEST: Clear to auscultation. No respiratory distress. HEART: Regular rate and rhythm. No murmur heard. Normal peripheral pulses. ABDOMEN: Soft, nontender, nondistended, normal active bowel sounds. EXTREMITIES: Normal range of motion. No edema. SKIN: Warm, dry, no rash. NEURO: No focal deficits. Alert and oriented x3. [place] Scale Eye Opening: Spontaneous 4 [place] Scale Motor: Obeys Commands 6 [place] Scale Verbal: Oriented 5 [place] Scale Total 15 Course Course Level of Care: Express Care Visit Vital Signs Vital signs: Vital Signs Temperature 36.4 C 11/27/22 10:20 Pulse Rate 101 H 11/27/22 10:20 Respiratory Rate 16 11/27/22 10:20 Blood Pressure 108/67 11/27/22 10:20 Pulse Oximetry 98 11/27/22 10:20 Oxygen Delivery Room Air 11/27/22 10:20 Temperature 36.4 C 11/27/22 10:20 Pulse Rate 101 H 11/27/22 10:20 Respiratory Rate 16 11/27/22 10:20 Blood Pressure 108/67 11/27/22 10:20 Pulse Oximetry 98 11/27/22 10:20 Oxygen Delivery Room Air 11/27/22 10:20 MDM - URI/Sore Throat Differential Diagnosis Differential diagnosis: Likely upper respiratory infection, croup, otitis media, sinusitis, viral infection, bronchitis, influenza and pharyngitis Discharge Plan Discharge Clinical Impression: Upper respiratory infection Patient Disposition: Home, Self-Care Condition: Stable Instructions: Cold Symptoms (ED) Additional Instructions: congestion - flonase am and pm for chronic sinus congestion or prolonged symptoms of sinusitis (takes several days to work). one to three times a day of irr
== END 2022-11-27 10:43 | disposition home or self-care (01) ==
PROVIDERS: Emergency Provider Nurse Practitioner Family; PCP Emergency Medicine
DX: J06.9 Acute upper respiratory infection, unspecified (principal); F12.90 Cannabis use, unspecified, uncomplicated
CPT/HCPCS: 99213; G0463

== ENCOUNTER 2023-06-02 16:07 | Emergency (ER) | payer OTHER, SELFPAY ==
[2023-06-02 16:12] VITALS: PULSE 95; RESP 20; TEMP 36.6; O2SAT 97
--- NOTE | 2023-06-02 16:15 | ED.FEMALEGU ---
HPI - Female Genitourinary General Chief complaint: Urogenital-Female Stated complaint: throat/frequent urination/back pain Source: patient and RN notes reviewed History of Present Illness HPI Narrative: 32 yo F presents to urgent care with complaints of frequent urination for over a week and back pain for a week. Pt was dx with a URI 2 days ago after testing negative for strep and covid at another urgent care. Pt denies any known fevers or chills but states she woke up today feeling somewhat weak. Denies any chest pain, SOB, vomiting, diarrhea, or abdominal pain. Pt's URI sx include cough, congestion, runny nose. Related Data Allergies Allergy/AdvReac Type Severity Reaction Status Date / Time cephalexin Allergy Unknown hallucinations, Verified 06/02/23 16:15 tachycardia tramadol Allergy Unknown HALLUCINATIONS, Verified 06/02/23 16:15 CHEST TIGHTNESS Review of Systems Review of Systems: Pertinent positives and pertinent negatives per HPI. PMFSH Past Medical History Medical History Anemia Marijuana use Surgical History Surgical History H/O tubal ligation Social History Social History Smoking status: Never smoker Substance use type: marijuana Comments At the time of my signature, I reviewed and agree with the nursing past medical, surgical, social, and family history. There is no relevant family history pertinent to the patient complaint. Exam Narrative: GENERAL: This is a well-nourished, well-developed patient, in no apparent distress. HEAD: normocephalic, atraumatic. EYES: Sclera clear/white. Vision is grossly intact. EARS: External ears normal, auditory canals clear and without drainage. Hearing grossly intact. NOSE: External nose normal with no obvious nasal discharge, nares without redness, no rhinorrhea. congestion THROAT: Mucous membranes moist, posterior pharynx clear. NECK: Neck supple, non-tender without lymphadenopathy, masses or thyromegaly. CARDIOVASCULAR: Regular rate and rhythm without murmurs, gallops, or rubs. RESPIRATORY: Clear to auscultation. Breath sounds equal bilaterally. No wheezes, rales, or rhonchi. SKIN: warm, intact with no suspicious lesions or rash, good texture and turgor. NEURO: awake, alert, and oriented to person, place and time. There were no obvious focal neurologic abnormalities. EXTREMITIES: No clubbing, cyanosis, or edema. No joint tenderness, effusion, or edema noted. BACK: Nontender without deformity or crepitus. No flank tenderness. Course Course Level of Care: Express Care Visit Vital Signs Vital signs: Vital Signs Temperature 97.9 F 06/02/23 16:12 Pulse Rate 95 06/02/23 16:12 Respiratory Rate 20 06/02/23 16:12 Pulse Oximetry 97 06/02/23 16:12 Oxygen Delivery Room Air 06/02/23 16:12 Temperature 97.9 F 06/02/23 16:12 Pulse Rate 95 06/02/23 16:12 Respiratory Rate 20 06/02/23 16:12 Pulse Oximetry 97 06/02/23 16:12 Oxygen Delivery Room Air 06/02/23 16:12 Reviewed MDM - Female Genitourinary MDM Narrative Medical decision making narrative: We will send a urine culture off to the lab; if the culture identifies an organism that the prescribed antibiotic will not treat, you will receive a phone call from an urgent care staff member and an appropriate antibiotic will be prescribed. -Your symptoms should begin to improve within a day of starting antibiotics. But you should finish all the antibiotic pills you get. Otherwise your infection might come back. -Also recommend: drink more fluid. It might help flush out germs, and it does no harm -Tylenol/ibuprofen as needed for pain -Follow-up with your primary care provider for urine recheck OR if your symptoms persist, change or worsen significantly before you can contact your personal physician then please, without delay, go to the emergency department f
== END 2023-06-02 16:43 | disposition home or self-care (01) ==
PROVIDERS: Emergency Provider Nurse Practitioner Family; PCP Emergency Medicine
DX: N39.0 Urinary tract infection, site not specified (principal); F12.90 Cannabis use, unspecified, uncomplicated
CPT/HCPCS: 81003; 87086; 99213; G0463

== ENCOUNTER 2023-08-25 08:21 | Emergency (ER) | payer OTHER, SELFPAY ==
--- NOTE | 2023-08-25 08:23 | ED.FEMALEGU ---
HPI - Female Genitourinary General Chief complaint: Urogenital-Female Stated complaint: Poss UTI/chills/aches/lower back Time Seen by Provider: 08/25/23 08:36 Source: patient, RN notes reviewed and old records reviewed Mode of arrival: ambulatory Limitations: no limitations History of Present Illness HPI Narrative: 33-year-old female presents to the [facility] with concerns for a UTI. Has had body aches, chills, low back discomfort. Reports his vomited 1 time yesterday. Symptoms started at 5:00 p.m. last night. Has taken ibuprofen Onset (ago): hour(s) Related Data Allergies Allergy/AdvReac Type Severity Reaction Status Date / Time cephalexin Allergy Unknown hallucinations, Verified 06/02/23 16:15 tachycardia tramadol Allergy Unknown HALLUCINATIONS, Verified 06/02/23 16:15 CHEST TIGHTNESS Review of Systems Review of Systems: All systems reviewed & are unremarkable except as noted in HPI and below Constitutional: Constitutional: Reports no additional constitutional complaints Eyes: Eyes: Reports no additional eye complaints ENT: Reports system reviewed and no additional complaints, except as documented Cardiovascular: Cardiovascular: Reports no additional cardiovascular complaints, Denies chest pain and Denies dyspnea Respiratory: Respiratory: Reports no additional respiratory complaints, Denies chest congestion, Denies cough and Denies dyspnea Gastrointestinal: Gastrointestinal: Reports no additional gastrointestinal complaints, Denies abdominal pain, Denies nausea and Denies vomiting Genitourinary: Genitourinary: Reports as per HPI and Reports dysuria Musculoskeletal: Musculoskeletal: Reports no additional musculoskeletal complaints Integumentary/Breasts: Skin/Breast: Reports system reviewed and no additional complaints, except as docu Neurologic: Reports system reviewed and no additional complaints, except as documented Psychiatric: Psychiatric: Reports no additional psychiatric complaints Allergic/Immunologic: Allergic/Immunologic: Reports no additional allergic/immunologic complaints PMFSH Past Medical History Medical History Anemia Marijuana use Surgical History Surgical History H/O tubal ligation Social History Social History Smoking status: Never smoker Substance use type: marijuana Comments At the time of my signature, I reviewed and agree with the nursing past medical, surgical, social, and family history. There is no relevant family history pertinent to the patient complaint. Exam Const: General: cooperative, healthy appearing, comfortable, no acute distress, well developed, alert and well nourished Nutritional Appearance: well nourished Orientation/consciousness: patient oriented x3 Limitations: no limitations HENMT: Head: normal to inspection Ears: hearing grossly normal bilaterally and external ears normal Face/Nose/Sinus: Normal external nose present, Normal nares present, Normal nasal mucous membranes and turbinates present, normal facial exam and face symmetric Face and sinus: normal facial exam and face symmetric Eyes: General: appearance normal, both eyes and all related structures Alignment and Position: alignment normal Periorbital: periorbital findings normal Pupils: Equal, round and reactive pupils present EOM: EOMs intact bilaterally Neck: Neck: normal visual inspection, full ROM, no lymphadenopathy and no meningeal signs Chest: Chest palpation & inspection: normal inspection of the chest Resp: Effort & Inspection: normal respiratory effort and able to speak in complete sentences Auscultation: clear to auscultation bilaterally, no crackles, no rales, no rhonchi and no wheezes Cardio: Rate: regular rate Rhythm: regular rhythm GI: GI Palp: No abdominal tenderness Auscultation: normal bowel sounds : General: Yes no CVA tenderness Back
[2023-08-25 08:24] VITALS: BP 111/59; PULSE 109; RESP 20; TEMP 36.8; O2SAT 100
--- NOTE | 2023-08-28 13:48 | PC.NURSE ---
called and requested test results and was given.
== END 2023-08-25 08:49 | disposition home or self-care (01) ==
PROVIDERS: Emergency Provider Nurse Practitioner
DX: N30.00 Acute cystitis without hematuria (principal); F12.90 Cannabis use, unspecified, uncomplicated
CPT/HCPCS: 81003; 87086; 87088; 99213; G0463

== ENCOUNTER 2024-04-03 08:02 | Emergency (ER) | payer OTHER, SELFPAY ==
[2024-04-03 08:11] VITALS: BP 116/75; PULSE 80; RESP 18; TEMP 36.8; O2SAT 100
[2024-04-03 08:26] LABS: EDUAAPPEAR Cloudy; EDUABILI Negative; EDUABLOOD Trace; EDUACOLOR1 Light/Pale; EDUAGLUCOSE Negative; EDUAKETONE Negative; EDUALEUKO 1+; EDUANITRATE Negative; EDUAPH 6.5; EDUAPROTEIN Negative; EDUASPGRAVITY 1.015; EDUAUROBILI 0.2
--- NOTE | 2024-04-03 08:30 | ED.GENADULT ---
HPI - General Adult General Chief complaint: Urogenital-Female Stated complaint: poss kidney infection Source: patient Mode of arrival: ambulatory Limitations: no limitations History of Present Illness HPI narrative: Patient presents for evaluation of urinary frequency for the last 5 days. She developed some chills in a subjective fever last night. She also has some low back pain. She denies any nausea, vomiting, abdominal pain, dysuria, hematuria, vaginal bleeding or discharge. History of tubal ligation. Related Data Allergies Allergy/AdvReac Type Severity Reaction Status Date / Time cephalexin Allergy Unknown hallucinations, Verified 06/02/23 16:15 tachycardia tramadol Allergy Unknown HALLUCINATIONS, Verified 06/02/23 16:15 CHEST TIGHTNESS Review of Systems Review of Systems: CONSTITUTIONAL: Reports chills and subjective fever EYES: Denies visual changes, redness, or discharge. ENT: Denies rhinorrhea, congestion, sore throat, or otalgia. CARDIOVASCULAR: Denies chest pain, palpitations, or edema. RESPIRATORY: Denies cough or dyspnea. GASTROINTESTINAL: Denies abdominal pain, nausea, vomiting, or diarrhea. GENITOURINARY: Reports urinary frequency. Denies hematuria, dysuria, vaginal bleeding and discharge SKIN: Denies rash or itching. MUSCULOSKELETAL: Reports low back pain. Denies joint pain, or myalgia. NEUROLOGIC: Denies headache, numbness, dizziness, or weakness. PSYCHIATRIC: Denies anxiety or depression. PMFSH Past Medical History Medical History Anemia Marijuana use Surgical History Surgical History H/O tubal ligation Family History Family History Mother Family history non-contributory Social History Social History Smoking status: Never smoker Substance use type: marijuana Gender identity (if verbalized by the patient): Female Spiritual care concerns: No Exam Narrative: GENERAL: Well-appearing, well-nourished, and in no acute distress. HEAD: Normocephalic, atraumatic. EYES: PERRLA and EOMI. ENT: Nares clear, no rhinorrhea or epistaxis. Mucous membranes moist. Oropharynx without tonsillar hypertrophy exudate or other lesions. Bilateral TMs pearly ward nonbulging NECK: Supple. No adenopathy or masses. No carotid bruits or JVD CHEST: Clear to auscultation. No respiratory distress. No wheezes rales or rhonchi HEART: Regular rate and rhythm. No murmur heard. Normal peripheral pulses. ABDOMEN: Soft, nontender, nondistended, normal active bowel sounds. BACK: No CVA tenderness EXTREMITIES: Normal range of motion. No edema. SKIN: Warm, dry, no rash. NEURO: No focal deficits. Alert and oriented x3. PSYCH: Normal mood and affect. Course Course Emergency Course: This is a 33-year-old female who presented for evaluation of urinary frequency. She has 1+ leukocytes in her urine today. Will treat with Macrobid. Send urine for culture. Increase hydration. Follow up with primary provider. Go to the ER for worsening symptoms. Patient in agreement with plan of care. Level of Care: Express Care Visit Vital Signs Vital signs: Vital Signs Temperature 36.8 C 04/03/24 08:11 Pulse Rate 80 04/03/24 08:11 Respiratory Rate 18 04/03/24 08:11 Blood Pressure 116/75 04/03/24 08:11 Pulse Oximetry 100 04/03/24 08:11 Oxygen Delivery Room Air 04/03/24 08:11 Temperature 36.8 C 04/03/24 08:11 Pulse Rate 80 04/03/24 08:11 Respiratory Rate 18 04/03/24 08:11 Blood Pressure 116/75 04/03/24 08:11 Pulse Oximetry 100 04/03/24 08:11 Oxygen Delivery Room Air 04/03/24 08:11 Medical Decision Making Vital Signs Vital Signs: Vital Signs Temperature 36.8 C 04/03/24 08:11 Pulse Rate 80 04/03/24 08:11 Respiratory Rate 18 04/03/24 08:11 Blood Pressure
== END 2024-04-03 08:33 | disposition home or self-care (01) ==
PROVIDERS: Emergency Provider Nurse Practitioner
DX: N39.0 Urinary tract infection, site not specified (principal); F12.90 Cannabis use, unspecified, uncomplicated
CPT/HCPCS: 81003; 87086; 87088; 99213; G0463

== ENCOUNTER 2024-04-12 15:56 | Emergency (ER) | payer OTHER, SELFPAY ==
[2024-04-12 16:10] VITALS: BP 128/68; PULSE 99; RESP 16; TEMP 37.3; O2SAT 100
--- NOTE | 2024-04-12 16:18 | ED.FEMALEGU ---
HPI - Female Genitourinary General Chief complaint: Urogenital-Female Stated complaint: Urinary Problem/STD Exposure Time Seen by Provider: 04/12/24 16:20 Source: patient, RN notes reviewed and old records reviewed Mode of arrival: ambulatory Limitations: no limitations History of Present Illness HPI Narrative: 33 year old female who presents to [facility] with complaints of urine remaining cloudy though she completed Macrobid 2 days ago and also had dose of Diflucan. Patient reports that she has some vaginal itching and also some pale yellow discharge and wants to be tested for STD's also. Patient reports some itching vaginally, denies an burning with urination, states some frequency and urgency and states that urine remains cloudy in appearance. MD elicited complaint: UTI Pertinent past history: other (recently treated with Macrobid and Diflucan) Onset (ago): day(s) (10 days) Location of symptoms: urethra and vaginal Severity: moderate Vaginal discharge: yellow (pale) Vaginal bleeding: none Treatment prior to arrival: other (completed Macrobid 2 days ago and did also take one dose of Diflucan) Related Data Allergies Allergy/AdvReac Type Severity Reaction Status Date / Time cephalexin Allergy Unknown hallucinations, Verified 06/02/23 16:15 tachycardia tramadol Allergy Unknown HALLUCINATIONS, Verified 06/02/23 16:15 CHEST TIGHTNESS Review of Systems Review of Systems: CONSTITUTIONAL: Denies fever, chills, or sweats. CARDIOVASCULAR: Denies chest pain, palpitations, or edema. RESPIRATORY: Denies cough or dyspnea. GASTROINTESTINAL: Denies abdominal pain, nausea, vomiting, or diarrhea. GENITOURINARY: Reports no dysuria,states frequency, urgency of urination and cloudy urine. Denies flank pain or hematuria.reports vaginal itching and also some pale yellow discharge SKIN: Denies rash or itching. MUSCULOSKELETAL: Denies back pain or myalgia. Denies CVA tenderness NEUROLOGIC: Denies headache All systems reviewed & are unremarkable except as noted in HPI and below PMFSH Past Medical History Medical History Anemia Marijuana use Surgical History Surgical History H/O tubal ligation Family History Family History Mother Family history non-contributory Social History Social History Smoking status: Never smoker Substance use type: marijuana Gender identity (if verbalized by the patient): Female Spiritual care concerns: No Comments At time of signature, agree with nursing past medical, surgical, social and family history. There is no relevant family history pertinent to the presenting complaint Exam Narrative: GENERAL: Well-appearing, well-nourished, and in no acute distress. HEAD: Normocephalic, atraumatic. NECK: Supple. no lymphadenopathy CHEST: Clear to auscultation. No respiratory distress.SAO2 100% on room air HEART: Regular rate and rhythm. No murmur heard. Normal peripheral pulses. ABDOMEN: Soft, nontender, nondistended, normal active bowel sounds. No CVA tenderness, reports uinary frequency and urgency with cloudy urine states vaginal itching and pale yellow discharge EXTREMITIES: Normal range of motion. No edema. SKIN: Warm, dry, no rash. NEURO: No focal deficits. Alert and oriented x3. Course Course Emergency Course: Patient is aware of diagnosis, understands and agrees to treatment plan.? Anticipatory guidance given.? Patient agrees to follow-up as directed and is aware of reasons to seek care at the emergency department. Portions of this record may have been created with voice recognition software Level of Care: Express Care Visit Vital Signs Vital signs: Vital Signs Temperature 37.3 C 04/12/24 16:10 Pulse Rate 99 04/12/24 16:10 Respiratory Rate 16 04/12/24 16:10 Blood Pressure 128/68 04/12
[2024-04-12 16:56] LABS: EDUAAPPEAR Cloudy; EDUABILI Negative; EDUABLOOD 1+; EDUACOLOR1 Dark; EDUAGLUCOSE Negative; EDUAKETONE Negative; EDUALEUKO 3+; EDUANITRATE Negative; EDUAPH 5.5; EDUAPROTEIN 1+; EDUASPGRAVITY 1.025; EDUAUROBILI 0.2
[2024-04-12 20:16] LABS: Trichomonas Vag PCR DETECTED (NOT DETECTE)
[2024-04-12 20:51] LABS: Chlamydia trachomatis NOT DETECTED (NOT DETECTE); Neisseria gonorrhoeae PCR NOT DETECTED (NOT DETECTE)
== END 2024-04-12 17:02 | disposition home or self-care (01) ==
PROVIDERS: Emergency Provider Registered Nurse
DX: N39.0 Urinary tract infection, site not specified (principal); A59.9 Trichomoniasis, unspecified
CPT/HCPCS: 81003; 87086; 87088; 87491; 87591; 87661; 99213; G0463

== ENCOUNTER 2024-05-09 12:52 | Emergency (ER) | payer OTHER, SELFPAY ==
[2024-05-09 13:03] VITALS: BP 111/74; PULSE 72; RESP 20; TEMP 36.6; O2SAT 100
[2024-05-09 13:05] VITALS: BP 111/74; PULSE 72; RESP 20; TEMP 36.6; O2SAT 100
[2024-05-09 13:12] LABS: EDUAAPPEAR Clear; EDUABILI Negative (Negative); EDUABLOOD 2+ (Negative); EDUACOLOR1 Yellow; EDUAGLUCOSE Negative (Negative); EDUAKETONE 1+ (Negative); EDUALEUKO Negative (Negative); EDUANITRATE Negative (Negative); EDUAPROTEIN Negative (Negative); EDUAUROBILI 0.2
--- NOTE | 2024-05-09 13:12 | ED.GENADULT ---
HPI - General Adult General Chief complaint: Urogenital-Female Stated complaint: Poss kidney infection Time Seen by Provider: 05/09/24 13:13 Source: patient, RN notes reviewed and old records reviewed Mode of arrival: ambulatory Limitations: no limitations History of Present Illness HPI narrative: 33-year-old female to Express Care complaint of urinary urgency, frequency for 3 days. Patient denies hematuria, abdominal pain, vaginal discharge, fever, nausea, flank pain. Patient reports testing positive for trich 1 month ago and is requesting follow-up testing. Patient has attempted to treat symptoms at home with [id number] medications. Patient sitting in exam room in no acute distress. Respirations even and nonlabored. Related Data Allergies Allergy/AdvReac Type Severity Reaction Status Date / Time cephalexin Allergy Unknown hallucinations, Verified 06/02/23 16:15 tachycardia tramadol Allergy Unknown HALLUCINATIONS, Verified 06/02/23 16:15 CHEST TIGHTNESS Review of Systems Review of Systems: All systems reviewed & are unremarkable except as noted in HPI and below Constitutional: Constitutional: Reports no additional constitutional complaints Eyes: Eyes: Reports no additional eye complaints ENT: Reports system reviewed and no additional complaints, except as documented Cardiovascular: Cardiovascular: Reports no additional cardiovascular complaints, Denies chest pain and Denies dyspnea Respiratory: Respiratory: Reports no additional respiratory complaints, Denies cough and Denies dyspnea Genitourinary: Genitourinary: Reports as per HPI, Reports nocturia and Reports urinary urgency Musculoskeletal: Musculoskeletal: Reports no additional musculoskeletal complaints Neurologic: Reports system reviewed and no additional complaints, except as documented Psychiatric: Psychiatric: Reports no additional psychiatric complaints PMFSH Past Medical History Medical History Anemia Marijuana use Surgical History Surgical History H/O tubal ligation Family History Family History Mother Family history non-contributory Social History Social History Smoking status: Never smoker Substance use type: marijuana Gender identity (if verbalized by the patient): Female Spiritual care concerns: No Comments At the time of my signature, I reviewed and agree with the nursing past medical, surgical, social, and family history. There is no relevant family history pertinent to the patient complaint. Exam Const: General: cooperative, healthy appearing, comfortable, no acute distress, alert and well nourished Nutritional Appearance: well nourished Orientation/consciousness: patient oriented x3 Limitations: no limitations HENMT: Head: normal to inspection Ears: external ears normal Face/Nose/Sinus: Normal external nose present, Normal nares present, normal facial exam, No erythema and No edema Face and sinus: normal facial exam, no erythema and no edema Mouth: Yes Normal oral and palatal mucosa present Eyes: General: appearance normal, both eyes and all related structures Neck: Neck: normal visual inspection, full ROM and no meningeal signs Chest: Chest palpation & inspection: normal inspection of the chest Resp: Effort & Inspection: normal respiratory effort and able to speak in complete sentences Cardio: Jugular venous distension: no JVD : General: Yes no CVA tenderness Back/Spine/Pelvis: Cervical Spine: cervical ROM normal Skin: General skin exam: normal color, no rashes or lesions noted and turgor normal Neuro: General: patient oriented x3, gait normal, moves all extremities and no meningeal signs Speech: normal speech Gait exam (Neuro): Normal gait present Extrem: General: normal to inspection, full ROM
[2024-05-09 20:33] LABS: Trichomonas Vag PCR NOT DETECTED (NOT DETECTE)
== END 2024-05-09 13:40 | disposition home or self-care (01) ==
PROVIDERS: Emergency Provider Nurse Practitioner Family
DX: N39.0 Urinary tract infection, site not specified (principal); F12.90 Cannabis use, unspecified, uncomplicated
CPT/HCPCS: 81003; 87086; 87661; 99213; G0463

== ENCOUNTER 2024-07-07 08:02 | Emergency (ER) | payer OTHER, SELFPAY ==
[2024-07-07 08:10] VITALS: BP 100/67; PULSE 79; RESP 16; TEMP 36.4; O2SAT 100
--- NOTE | 2024-07-07 08:15 | ED.GENADULT ---
HPI - General Adult General Chief complaint: Upper Respiratory Infection Stated complaint: throat Source: patient Mode of arrival: ambulatory Limitations: no limitations History of Present Illness HPI narrative: Patient presents for evaluation of sore throat. Symptom onset 1 week ago. She then developed some nasal congestion. Both sore throat and nasal congestion resolved. Last night around 1730 she noted recurrence of her sore throat. Pain is worse on the right. No fever, chills, nausea, vomiting, cough, shortness of breath. No recent sick contacts to her knowledge. She smokes marijuana but not cigarettes. She tried taking ibuprofen for symptoms which seemed to help. Related Data Allergies Allergy/AdvReac Type Severity Reaction Status Date / Time cephalexin Allergy Unknown hallucinations, Verified 06/02/23 16:15 tachycardia tramadol Allergy Unknown HALLUCINATIONS, Verified 06/02/23 16:15 CHEST TIGHTNESS Review of Systems Review of Systems: CONSTITUTIONAL: Denies fever, chills, or sweats. EYES: Denies visual changes, redness, or discharge. ENT: Reports sore throat. Denies rhinorrhea, congestion, or otalgia. CARDIOVASCULAR: Denies chest pain, palpitations, or edema. RESPIRATORY: Denies cough or dyspnea. GASTROINTESTINAL: Denies abdominal pain, nausea, vomiting, or diarrhea. GENITOURINARY: Denies dysuria or hematuria. SKIN: Denies rash or itching. MUSCULOSKELETAL: Denies back pain, joint pain, or myalgia. NEUROLOGIC: Denies headache, numbness, dizziness, or weakness. PSYCHIATRIC: Denies anxiety or depression. PMFSH Past Medical History Medical History Anemia Marijuana use Surgical History Surgical History (Reviewed 07/07/24 @ 08:16 by Shaggy Du, [facility] [place], ) H/O tubal ligation Family History Family History Mother Family history non-contributory Social History Social History Smoking status: Never smoker Substance use type: marijuana Gender identity (if verbalized by the patient): Female Spiritual care concerns: No Exam Narrative: GENERAL: Well-appearing, well-nourished, and in no acute distress. HEAD: Normocephalic, atraumatic. EYES: PERRLA and EOMI. ENT: Nares clear, no rhinorrhea or epistaxis. Mucous membranes moist. Posterior pharyngeal erythema without exudate. Uvula is midline. Bilateral TMs pearly ward nonbulging NECK: Supple. No adenopathy or masses. No carotid bruits or JVD CHEST: Clear to auscultation. No respiratory distress. No wheezes rales or rhonchi HEART: Regular rate and rhythm. No murmur heard. Normal peripheral pulses. ABDOMEN: Soft, nontender, nondistended, normal active bowel sounds. EXTREMITIES: Normal range of motion. No edema. SKIN: Warm, dry, no rash. NEURO: No focal deficits. Alert and oriented x3. PSYCH: Normal mood and affect. Course Course Emergency Course: This is a 34-year-old female who presented for evaluation of a sore throat. Rapid strep negative. Will send throat culture. Increase hydration. Ibuprofen and Cepacol for symptom management. Follow up with primary provider. Go to the ER for worsening symptoms. Patient is in agreement with plan of care. Level of Care: Express Care Visit Vital Signs Vital signs: Vital Signs Temperature 36.4 C 07/07/24 08:10 Pulse Rate 79 07/07/24 08:10 Respiratory Rate 16 07/07/24 08:10 Blood Pressure 100/67 07/07/24 08:10 Pulse Oximetry 100 07/07/24 08:10 Oxygen Delivery Room Air 07/07/24 08:10 Temperature 36.4 C 07/07/24 08:10 Pulse Rate 79 07/07/24 08:10 Respiratory Rate 16 07/07/24 08:10 Blood Pressure 100/67 07/07/24 08:10 Pulse Oximetry 100 07/07/24 08:10 Oxygen Delivery Room Air 07/07/24 08:10 Medical Decision Making Vital Signs Vital Signs: Vital Signs Temperature 36.4 C 07/07/24 08:10 Pulse Rate 79 07/07/24 08:10 Respiratory Rate 16 07/07/24 08:10 Blood Pressure 100/67 07/07/24 08:10 Pulse Oximetry 100 07/07/24 08:10 Oxygen Delivery Room Air 07/07/24 08:10 Temperature 36.4 C 07/07/24 08:10 Pulse Rate 79 07/07/24 08:10 Respiratory Rate 16 07/07/24 08:10 Blood Pressure 100/67 07/07/24 08:10 Pulse Oximetry 100 07/07/24 08:10 Oxygen Delivery Room Air 07/07/24 08:10 Discharge Plan Discharge Clinical Impression: Pharyngitis Patient Disposition: Home, Self-Care Condition: Stable Instructions: Antibiotic Form, Pharyngitis (ED) Additional Instructions: IBUPROFEN AND CEPACOL LOZENGES SHOULD HELP WITH YOUR SYMPTOMS Patient Language: Arabic Follow-up/Referrals: Brady Singh MD [Physician] - Time of Disposition: 08:33
[2024-07-09 10:03] LABS: EDSTREPNEGPOS1 Negative (Negative)
== END 2024-07-07 08:35 | disposition home or self-care (01) ==
PROVIDERS: Emergency Provider Nurse Practitioner
DX: J02.9 Acute pharyngitis, unspecified (principal); F12.90 Cannabis use, unspecified, uncomplicated
CPT/HCPCS: 87081; 87880; 99213; G0463

== ENCOUNTER 2025-06-15 08:06 | Emergency (ER) | payer OTHER, SELFPAY ==
--- OUTSIDE RECORDS SUMMARY | 2025-06-15 08:09 | XMS_ITS | Clinical Summary ---
Author Organization [facility] Address [address] [place] [address] Care Team Providers Care Network Analyst Name Role Phone No, Physician Primary Care Provider [phone] Danyell Aviles PT Unavailable Unavaila ble Allergies Active Allergy Reactions Criticality Noted Date Comments Cephalexin Unknown 02/18/2022 Tramadol Unknown 02/18/2022 Medications triamcinolone (KENALOG) 0.1 % ointment Apply topically 2 (two) times a day 30 g 9 Active Additional Information Patient not taking.Reported on 03/01/2022 fluticasone propionate (FLONASE) 50 mcg/actuation nasal sprayIndication s:Non-recurrent acute suppurative otitis media of right ear without spontaneous rupture of tympanic membrane Administer 2 sprays into each nostril daily 16 g 0 Active naproxen (NAPROSYN) 375 mg tablet Take 1 tablet (375 mg total) by mouth 2 (two) times a day with meals Take as directed for pain. Collaborating physician Isaac Duff MD 20 tablet 2 Active Additional Information Patient not taking.Reported on 03/01/2022 tiZANidine (ZANAFLEX) 4 mg tablet Take 1 tablet (4 mg total) by mouth every 6 (six) hours as needed (Take as directed to relax muscles) Collaborating physician Isaac Duff MD 20 tablet 2 Active Additional Information Patient not taking.Reported on 03/01/2022 acetaminophen ER (TYLENOL) 650 mg 8 hr tablet Take 650 mg by mouth every 8 (eight) hours as needed for pain Active Active Problems Problem Noted Date Diagnosed Date Rotator cuff strain, right, initial encounter Osteoarthritis of right shoulder 02/18/2022 Immunizations Immunization Administration Dates Next Due DTP 01/26/1991,1989,1989 ,1989 HiB 10/20/1990 MMR 11/11/1993,10/20/1990 OPV 01/26/1991,1989,1989 ,1989 Tdap 02/15/2018 Surgical History Surgery Date Site/Laterality Comments TUBAL LIGATION Medical History Medical History Date Comments No pertinent past medical history Family History Medical History Relation Name Comments Hypertension Father Hypertension Mother Relation Name Status Comments Father Alive Mother Alive Social History Tobacco Use Types Packs/Day Years Used Date Smoking Tobacco: Never Smokeless Tobacco: Never Alcohol Use Standard Drinks/Week Comments Not Currently 0 (1 standard drink = 0.6 oz pur e alcohol) Personal Safety Answer Date Recorded Getting School Help Needed Not on file 08/24 Comments No Sex and Gender Information Value Date Recorded Sex Assigned at Not on file Legal Sex Female 2:41 AM [employer] SAL[employer] Gender Identity Not on file Sexual Orientation Not on file Obstetrics History Last Filed Vital Signs Vital Sign Reading Time Taken Comments Blood Pressure 101/64 03/01/2022 10:15 AM CDT Pulse 60 03/01/2022 10:15 AM CDT Temperature 36.8 C (98.3 F) 02/18/2022 1:45 PM CDT Respiratory Rate 16 02/18/2022 1:45 PM CDT Oxygen Saturation 99% 02/18/2022 1:45 PM CDT Inhaled Oxygen Concentration - - Weight 72.6 kg (160 lb) 03/01/2022 10:15 AM CDT Height 147.3 cm (4' 10) 03/01/2022 10:15 AM CDT Body Mass Index 33.44 03/01/2022 10:15 AM CDT Plan of Treatment Health Maintenance Due Date Last Done Comments Cervical Cancer Screening 1989 Depression Screening 1989 Hepatitis C Screening 1989 Varicella Vaccines (1 of 2 - 13+ 2-dose series) 2002 Hepatitis B Screening 2007 Regular Well Visit/Exam 18-64 2007 HPV Vaccines (1 - 3-dose SCDM series) 2016 Covid-19 Vaccine (3 - 2024- season) 2025 04/30/2021, 04/09/2021 Influenza Vaccine (#1) 2025 DTaP/Tdap/Td Vaccine (6 - Td or Tdap) 02/16/2028 02/15/2018, 01/26/1991, 1989, Additional history exists Pneumococcal vaccine <65 Aged Out No longer eligible based on patient's age to complete this topic Insurance Care Teams Network Analyst Relationship Specialty Start Date End Date No, Physician PCP - General 05/04/19 Danyell Aviles, PT Physical Therapist Physical Therapy 03/30/22
--- OUTSIDE RECORDS SUMMARY | 2025-06-15 08:11 | XMS_ITS | Data Portability ---
Author Organization [facility] Address [address] [place] [address] Care Team Providers Care Paper Bag Maker Name Role Phone [facility] Primary Care Provider Assessment Encounter Date Assessment Date Assessment LastModified by Organization Details LastModified Time 12/01/2022 12/01/2022 Annual gynecological exam performed. Patient will come back in a year unless there are new symptoms. Not available 12/01/2022 10:37:37 Plan of Treatment Reminders Order Date Submit Date Provider Last Modified By Organization Details Last Modified Time Details Appointments None record ed. Lab None record ed. Referral None record ed. Procedures None record ed. Surgeries None record ed. Imaging None record ed. Medication Orders None record ed. Patient TargetsNo targets recorded. Patient InstructionsNo instructions recorded. Reason for Referral None Reported. Results Created Date Observation Date Name Description Value Unit Range Abnormal Flag Note LastModifiedBy Organization Detail LastModifiedTime 12/02/19 23 12/01/2022 IMAGE GUIDE D PAP AND HPV REGAR DLESS image guided Pap, HPV regardless of Pap result SEE RESULT S BELOW CASE REPOR T: Cytol ogy Gynec ologi ct Repor t Case: [id number] Autho allegra g Provi shellie: Rossi Barragan, DALY Colle cted: 12/01 1257 Order ing Locat ion: [place] [facility] Recei dagmar: 12/02 1015 First Scree n: Noora ni, Moham ed, CT Rescr een: Nacha mpass ak, Sivil ay, CT Speci men: Scree cristo Pap - Image d, Cervi x STATE MENT OF ADEQU ACY: Satis facto ry for evalu ation Trans forma tion zone compo nent prese nt FINAL DIAGN OSIS: Negat cristal for Intra epith elial Lesio timmy or Aj romero (NIL) . Elect lyla velasco d by Broderick valentin, Yris ross, CT on 2022 at 7:02 PM ----- ----- ----- ----- ----- ----- ----- ----- ----- ----- ----- ----- ----- ----- ----- ----- ----- ---- HPV RESUL TS: HPV mRNA E6/E7 : No HPV mRNA Detec david NOTE: This high risk HPV mRNA assay detec ts fourt een high- risk HPV types (16, 18, 31, 33, 35, 39, 45, 51, 52, 56, 58, 59, 66, 68) witho ut diffe renti ation . COMME NT: This speci men was revie wed by a Cytot echno logis t and/o r Patho logis t (as indic ated in this repor t) after evalu ation using the Thinp rep Imagi ng Syste m. CLINI CT INFOR MATIO N: Menst rual Statu s: LMP (if appli cable ): Clini ct Histo ry/Pr eviou s Pap: Type of Neopl giovanni (if appli cable ): Signi fican t Clini ct Findi ngs: Other Histo ry: Hormo bernardo (if appli cable ): PAP EDUCA KANE L NOTE: The Pap Test is a scree cristo test with an inher ent false negat cristal rate. Liqui d-bas ed sampl ing may decre ase, but will not elimi nicky, false negat cristal resul ts. A negat cristal resul t does not precl ude the prese nce and/o r devel opmen t of disea se, since the prese nce of abnor mal cells in the sampl e depen ds on the locat ion of the lesio n and sampl ing techn ique. Huma nued regul ar scree cristo is the best metho d of cance r preve ntion . If repor david cytol ogic findi ng do not corre late with physi ct and/o r histo rical findi ngs, furth er inves tigat ion is recom ac d, as clini mary de nted. Not Available [facility] (Lab) [address], [place], [address], 12/06/2022 20:05:03 12/02/19 23 12/01/2022 TRICH OMONA S VAGIN ASHLI (RRNA ) trichomonas vaginalis ribosomal RNA (rrna) Negati ve negati ve Not Available [facility] (Lab) [address], [place], [address], 12/06/2022 20:05:03 12/02/19 23 12/01/2022 CT/GC (ANGEL LUIS) , THINP REP VIAL chlamydia trachomatis, PCR Negati ve negati ve Not Available [facility] (Lab) [address], [place], [address], 12/06/2022 20:05:04 12/02/19 23 12/01/2022 CT/GC (ANGEL LUIS) , THINP REP VIAL neisseria gonorrhoeae, PCR Negati ve negati ve Not Available [facility] (Lab) [address] [place], [address], 12/06/2022 20:05:04 Result Notes None recorded. Procedures Surgical History Date Name Laterality Status Provider Name and Address Organization Details Recorded Time 8 Tubal Ligation completed [facility] 12/01/2022 10:41:35 8 Date of Last Pap Smear completed [facility] 12/01/2022 10:38:35 Imaging Results None recorded. Procedure Notes None recorded. Medical Equipment None Reported. Allergies No known drug allergies Medications Name Sig Start Date Stop Date Status Note LastModified by Organization Details LastModified Time Paxil active Not Available Not Availa ble Not Available Vitals Date Recorded Body height Body mass index (BMI) Body weight Systolic And Diastolic Provider Name and Address Organization Details Last Updated DateTime 12/01/2022 147.32 cm 35.5 kg/m2 46831.7 g 104/72 mm[Hg] Jesika Harley [facility] 12/01/2022 10:38:17 Social History Question Answer Notes LastModified by Organizat ion Details LastModified Time Tobacco Smoking Status Never Smoker Jesika Harley [facility], [facility] 12/01/2022 10:41:13 Are You Blind Or Do You Have Difficulty Seeing? No Information n ot available 12/01/2022 In The 14 Days Before Symptom Onset, Have You Had Close Contact With A Laboratory-confirm ed COVID-19 While That Case Was Ill? No Information n ot available 12/01/2022 In The 14 Days Before Symptom Onset, Have You Had Close Contact With A Person Who Is Under Investigation For COVID-19 While That Person Was Ill? No Information not available 12/01/2022 Have You Been To An Area Known To Be High Risk For COVID-19? No Information not available 12/01/2022 Are You Deaf Or Do You Have Serious Difficulty Hearing? No Information not available 12/01/2022 Which Illicit Or Recreational Drugs Have You Used? Medical Marijuana Information not available 12/01/2022 Have You Used IV Drugs? No Information not available 12/01/2022 Do You Have Difficulty Walking Or Climbing Stairs? No Information not available 12/01/2022 Sex: Unknown Functional Status Question Answer Note LastModified by Organizat ion Details LastModified Time Do you use any illicit or recreational drugs? Yes Information not available 12/01/2022 What is your level of alcohol consumption? None Information not available 12/01/2022 Are you able to walk independently without assistance or assistive devices? YESWOREST Information not available 12/01/2022 Are you able to care for yourself independently? Yes Information not available 12/01/2022 Do you have difficulty dressing, bathing, grooming, or toileting? No Information not available 12/01/2022 Mental Status None recorded. Family History Relationship Description Onset Age of this Age Resolved Age Notes LastModified by Organization Details LastModified Time Mother Hypertensive disorder Not available 2022 10:40:50 Father Hypertensive disorder Not available 2022 10:40:50 Medical History Condition Response Allergies (Food, seasonal, environmental ) N Other N Drug/Latex Allergies/Reactions N Breast Cancer N Blood Transfusion N Lung Disease N Dermatologic Disorders N Defects or Inherited Disease N Breast Problem N Gestational Diabetes N Hematologic disorders N Anesthesia Complications N History of STI N Deep Vein Thrombosis N Polycystic ovary syndrome N Anxiety Disorder N Autoimmune disease N Arthritis N Polyps N Infertility N History of abnormal pap N Acid Reflux (GERD) N Cancer N Varicosities N Stroke N Neurologic/Epilepsy N Endometriosis N High Cholesterol N Headaches N Fibromyalgia N Kidney Disease N Heart Problems N Thyroid Problems N Kidney or Bladder Problems N GI Problems N Eating Disorder N Anemia N Art (IVF or FET) N Psychiatric Illness N Ovarian Cancer N Diabetes N Pulmonary (TB, Asthma) N Hepatitis/Liver Disease N No Past Medical History N Eczema N Urinary Tract Infection N Abuse/Domestic Violence N Asthma N Trauma/Violence N Depression/ depression N Heart Disease N Pre-Eclampsia N Hypertension N Osteoporosis N Thrombophilias N Gynecological History Statement/Question Response Abnormal Pap N Flow Moderate Date of LMP 11/04/2022 STIs/STDs Y HPV Vaccine Y Current Control Method Tubal Ligat ion Sexually Active? Y Menses Monthly Y Age of first menstrual cycle 9 Date of Last Pap Smear 10/20/2017 Sexual Problems? N LMP Approximate Obstetrics History GPAL:G 4 P 4 0 0 4 Type Value Full Term 4 Living 4 Total 4 Past Encounters Encounter ID Performer Location Encounter Start Date Encounter Closed Date Diagnosis/Indication Diagnosis SNOMED-CT Code Diagnosis ICD10 Code Diagnosis IMO Codes Diagnosis Note [id number] RENETTA Yu [place] [address] [address] 12/01/2022 10:13:33 12/01/2022 11:25:03 Gynecologic examination 19295169 Z01.419 Take Calcium with Vitamin D 1200mg daily if not receiving in daily diet. It is strongly advised to have an annual flu shot and up can obtain at most pharmacies . If you have not had a TDap shot in the last 10 years you should obtain one as well. Discussed with patient & provided with informatio n regarding Gardisil vaccine to prevent the 4 strains for HPV that cause cervical cancer if under age 26. Encourage safe sexual practices, to use condoms and limit partners if not already in a monogamous relationsh ip. Do monthly self breast exams. Have mammogram yearly or every other year depending on family history. BRCA testing is now available for patients with strong genetic history of female cancer. If interested contact the office. Engage in daily exercise of low impact aerobic exercise 45-60 minutes 4-5 times weekly. Avoid tobacco and illicit drugs as well as using moderation with alcohol intake less than 1-2 8 oz beverages daily. This lifestyle behavior pattern will lead to less health conditions and longer life span. If BMI greater than 25 weight watchers or dietary consult advised. Patient received above instructio ns, and questions have been answered. If you have any questions please call or respond to this email. Patient was made aware of the patient portal and may obtain a paper copy of today's plan if desired. WWEBC - BTLno hx of abnormal papslast pap 2018 - normalpap done todaySTI testing added to papBlood STI panel declinedFa m hx reivewedma m at 40 unless otherwise indicatedU TD with PCPsome redness noted on right side of vaginal opening. No symptoms. Encouraged crisco twice daily. If persist RTC for vulvar check. Discussed possible biopsy if persist. Health Concerns Section Related Observation LastModified by Organization Detai ls LastModified Time None Recorded Concern Status LastModified by Organization Details LastModified Time None Recorded Advance Directives Directive None Recorded Payers Insurance Date Sequence Insurance Name Policy Number Policy Mariano Covered Member ID Mariano Member ID Guarantor Name 01/17/2024 1 [facility] (MEDICAID HMO) [id number] Evie Washington [id number] Evie Washington Notes Date Note Type Note Provider Name and Address Organization Details Recorded Time 3 text/html Annual GYNReported by PatientGenitourinary symptomsFor menstrual cycle, patient reportsnormal menses. For urinary symptoms, patient reportsno hematuriaandno incontinence. For vulva, patient reportsno genital lesion. For vagina, patient reportsnormal vaginal discharge.Breast symptomsFor breast, patient reportsno breast pain,no breast lump, andno nipple discharge.ContraceptionFo r current contraception, patient reportstubal ligation.Endocrine symptomsFor sexual complaints, patient reportsno sexual complaints,no pain during intercourse, andnormal libido. For menopausal symptoms, patient reportsno menopausal symptomsandnormal vaginal lubrication.Psychological symptomsFor psychological symptoms, patient reportsno depression,no anxiety, andno pmdd.Preventative measuresFor preventive measures, patient reportsencourage self breast examination,encourage regular exercise,encourage no tobacco use, andencourage regular mammograms starting age 40. RENETTA Yu [address], [place], [address], [facility] 12/01/2022 11:03:35 OBGyn Episode Ob Episode Information Episode Created Date Number of Fetuses Patient Bloodtype Patient rh Status Prepregnancy Weight lbs Domestic Partner Domestic Partner Phone Father Name Repair Service Dispatcher Status 12/02/19 1 CLOSED Fetus Data First Name Last Name Admitted to NICU Weight (g) Sex Living Outcome Pediatric Complications Fetus ID Race Codes Race Delivery Type 3373.36 [id number] F Full Term [id number] Vaginal Delivery Luke Calculation Initial Luke Date Initial Exam Date Initial Exam Provider Initial Ultrasound Date Last Menstrual Period Date Ultra Sound Weeks Gestation 0 Eighteen To Twenty Week Luke Update Ultra Sound Date Fundal Height At Umbil Quickening Date Ultra Sound Latest Weeks Gestation Final Luke Confirmed By Final Luke Confirmed Date Final Luke Date Ultra Sound Latest Days Gestation 0 0 Menstrual History Last Menstrual Date Menses Monthly On Bcp Conception Prior Menses Frequency Hcg Plus Date Menarche Onset Age Delivery Information Delivery Date Delivery Type Labor Anesthesia Weeks Gestation Incision Type Labor Labor Length Hrs Delivered By Post Complications Tubal Sterilization Discharge Date Comments 1 Discharge Information Feeding Method Contraceptive Method Maternal HG B and HCT Levels Ob Episode Information Episode Created Date Number of Fetuses Patient Bloodtype Patient rh Status Prepregnancy Weight lbs Domestic Partner Domestic Partner Phone Father Name Repair Service Dispatcher Status 12/02/19 23 1 CLOSED Fetus Data First Name Last Name Admitted to NICU Weight (g) Sex Living Outcome Pediatric Complications Fetus ID Race Codes Race Delivery Type 3685.43 5 M Full Term [id number] Vaginal Delivery Luke Calculation Initial Luke Date Initial Exam Date Initial Exam Provider Initial Ultrasound Date Last Menstrual Period Date Ultra Sound Weeks Gestation 0 Eighteen To Twenty Week Luke Update Ultra Sound Date Fundal Height At Umbil Quickening Date Ultra Sound Latest Weeks Gestation Final Lkue Confirmed By Final Luke Confirmed Date Final Luke Date Ultra Sound Latest Days Gestation 0 0 Menstrual History Last Menstrual Date Menses Monthly On Bcp Conception Prior Menses Frequency Hcg Plus Date Menarche Onset Age Delivery Information Delivery Date Delivery Type Labor Anesthesia Weeks Gestation Incision Type Labor Labor Length Hrs Delivered By Post Complications Tubal Sterilization Discharge Date Comments 3 Discharge Information Feeding Method Contraceptive Method Maternal HG B and HCT Levels Ob Episode Information Episode Created Date Number of Fetuses Patient Bloodtype Patient rh Status Prepregnancy Weight lbs Domestic Partner Domestic Partner Phone Father Name Repair Service Dispatcher Status 12/02/19 23 1 CLOSED Fetus Data First Name Last Name Admitted to NICU Weight (g) Sex Living Outcome Pediatric Complications Fetus ID Race Codes Race Delivery Type 2834.95 F Full Term [id number] Vaginal Delivery Luke Calculation Initial Luke Date Initial Exam Date Initial Exam Provider Initial Ultrasound Date Last Menstrual Period Date Ultra Sound Weeks Gestation 0 Eighteen To Twenty Week Luke Update Ultra Sound Date Fundal Height At Umbil Quickening Date Ultra Sound Latest Weeks Gestation Final Luke Confirmed By Final Luke Confirmed Date Final Luke Date Ultra Sound Latest Days Gestation 0 0 Menstrual History Last Menstrual Date Menses Monthly On Bcp Conception Prior Menses Frequency Hcg Plus Date Menarche Onset Age Delivery Information Delivery Date Delivery Type Labor Anesthesia Weeks Gestation Incision Type Labor Labor Length Hrs Delivered By Post Complications Tubal Sterilization Discharge Date Comments 9 Discharge Information Feeding Method Contraceptive Method Maternal HG B and HCT Levels Ob Episode Information Episode Created Date Number of Fetuses Patient Bloodtype Patient rh Status Prepregnancy Weight lbs Domestic Partner Domestic Partner Phone Father Name Repair Service Dispatcher Status 12/02/19 23 1 CLOSED Fetus Data First Name Last Name Admitted to NICU Weight (g) Sex Living Outcome Pediatric Complications Fetus ID Race Codes Race Delivery Type 2891.64 9 F Full Term [id number] Vaginal Delivery Luke Calculation Initial Luke Date Initial Exam Date Initial Exam Provider Initial Ultrasound Date Last Menstrual Period Date Ultra Sound Weeks Gestation 0 Eighteen To Twenty Week Luke Update Ultra Sound Date Fundal Height At Umbil Quickening Date Ultra Sound Latest Weeks Gestation Final Luke Confirmed By Final Luke Confirmed Date Final Luke Date Ultra Sound Latest Days Gestation 0 0 Menstrual History Last Menstrual Date Menses Monthly On Bcp Conception Prior Menses Frequency Hcg Plus Date Menarche Onset Age Delivery Information Delivery Date Delivery Type Labor Anesthesia Weeks Gestation Incision Type Labor Labor Length Hrs Delivered By Post Complications Tubal Sterilization Discharge Date Comments 8 Discharge Information Feeding Method Contraceptive Method Maternal HG B and HCT Levels
[2025-06-15 08:14] VITALS: BP 109/73; PULSE 78; RESP 20; TEMP 36.2; O2SAT 100
--- NOTE | 2025-06-15 08:16 | ED_ITS ---
HPI - Ear Problem General Chief complaint: Ear Stated complaint: Ear Pain Time Seen by Provider: 06/15/25 08:16 Source: patient Mode of arrival: ambulatory Limitations: no limitations History of Present Illness HPI Narrative: 35-year-old female with right ear pain for 1 day. Reports nasal congestion for 2 days. Afebrile. Not taking any [id number] medications to treat symptoms. All systems reviewed and negative except as noted above. Related Data Allergies Allergy/AdvReac Type Severity Reaction Status Date / Time cephalexin Allergy Unknown hallucinations, Verified 06/15/25 08:18 tachycardia tramadol Allergy Unknown HALLUCINATIONS, Verified 06/15/25 08:18 CHEST TIGHTNESS PMFSH Past Medical History Medical History Anemia Marijuana use Surgical History Surgical History H/O tubal ligation Family History Family History Mother Family history non-contributory Social History Social History Smoking status: Never smoker Substance use type: marijuana Gender identity (if verbalized by the patient): Female Spiritual care concerns: No Comments At time of signature, agree with nursing past medical, surgical, social and family history. There is no relevant family history pertinent to the presenting complaint. Exam Narrative: GENERAL: This is a well-nourished, well-developed patient, in no apparent distress. HEAD: normocephalic, atraumatic. EYES: PERRL. Sclera clear/white. Vision is grossly intact. EARS: External ears normal, Right ear canal is erythematous and tender without drainage or swelling. Left ear canal is normal., Clear fluid to right TM, left TM is normal. No erythema Or perforation bilaterally. Hearing grossly intact. NOSE: External nose normal with no obvious nasal discharge, nares without redness, no rhinorrhea. THROAT: Mucous membranes moist, posterior pharynx clear. NECK: Neck supple, non-tender without lymphadenopathy, masses or thyromegaly. CARDIOVASCULAR: Regular rate and rhythm without murmurs, gallops, or rubs. RESPIRATORY: Clear to auscultation. Breath sounds equal bilaterally. No wheezes, rales, or rhonchi. SKIN: warm, Dry, intact with no suspicious lesions or rash, good texture and turgor. NEURO: awake, alert, and oriented to person, place and time. There were no obvious focal neurologic abnormalities. EXTREMITIES: No joint tenderness, effusion, or edema noted. Course Course Level of Care: Express Care Visit Vital Signs Vital signs: reviewed Medical Decision Making MDM Narrative Medical decision making narrative: recommend Flonase and Zyrtec to treat right serous otitis media. Will treat erythema to right ear canal with ofloxacin antibiotic ear drop. Patient agrees with plan of care. Patient is well-appearing, nontoxic. Discharge Plan Discharge Clinical Impression: Acute serous otitis media of right ear, Acute otitis externa of right ear Patient Disposition: Home Condition: Stable Instructions: Antibiotic Form, Swimmer's Ear (ED) Additional Instructions: Place antibiotic drops as prescribed. Take over the counter flonase and zyrtec as directed on packaging. See your doctor as needed. Patient Language: Ukrainian Prescriptions: New ofloxacin 0.3 % drops 10 drp RIGHT EAR DAILY 7 Days Qty: 5 0RF Follow-up/Referrals: PHYSICIAN,WRAPPING MACHINE HELPER [Primary Care Provider, Internal Medicine] Time of Disposition: 08:20
== END 2025-06-15 08:21 | disposition home or self-care (01) ==
PROVIDERS: Emergency Provider Nurse Practitioner Family
DX: H65.01 Acute serous otitis media, right ear (principal); H60.501 Unspecified acute noninfective otitis externa, right ear; F12.90 Cannabis use, unspecified, uncomplicated
CPT/HCPCS: 99213; G0463